=== PATIENT | female | born 1935 | race Caucasian/White ===

== ENCOUNTER 2016-10-11 18:05 | Emergency (ER) | payer MEDICARE, OTHER ==
[~2016-10-11] VITALS: Ht 157.5 cm; Wt 72.6 kg
[~2016-10-11 18:05] MED LIST: 70/30 INSULIN SC; ANTIVERT GENERI25 MG PO; COUMADIN3 M1 PO; HUMULIN 70 U/ML10 ML SC; HUMULIN SC; IMDUR 60MG. TAB60 MG PO; IMDUR120 MG PO; K-DUR 2020 MEQ PO; LASIX20 MG PO; LASIX40 MG PO; LEVOFLOXACIN 5500 MG PO; LISINOPRIL/HCTZ1 TA1 PO; LISINOPRIL2.5 MG PO; LORTAB 5/500 501 TAB PO; LOVASTATIN20 MG PO; METOPROLOL25 MG PO; METOPROLOL50 MG PO; MICRO-K 10 MEQ10 MEQ PO; MULTAQ400 MG PO; NIFEDIAC CC60 MG PO; NITROLINGU0.4 MG/ACT SL; NOVOLIN 70/30 710 ML SC; PRILOSEC OTC20 MG PO; SERAX 10MG CAPS10 MG PO; TESSALON PERLE100 M1 PO; WARFARIN SOD5 MG PO; WARFARIN SODIUM1 MG PO; WARFARIN4 MG PO; ZITHROMAX Z-PA250 M2 PO; ZOFRAN ODT8 MG PO; ZOFRAN4 MG PO
[2016-10-11 18:53] LABS: HEMOGLOBIN 13.8 g/dL (12.2-16.2); LYMPH # 0.8 K/mm3 (0.7-4.5); LYMPH % 11.9 % (10-50.0)
[2016-10-11 19:16] LABS: FREE THYROXIN INDEX 6.6 ug/dl (5.93-13.13)
--- NOTE | 2016-10-11 19:47 | Emergency Room Report ---
History of Present Illness Time Seen by 183 Presenting Problem in Triage Pt arrived:Wheelchair Presenting Problem:PT IS HAVING PRESSURE ON THE LEFT SIDE OF HER CHEST AND BREAST. 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 N Clinical Suspician of Infection? N Mental Status: 1 - Regular (Normal Baseline) Sepsis Risk:Low Sepsis Risk Have you (or family members/close friends) recently traveled outside the [place]? N If Yes, where/when: Have you had exposure to infectious disease within the past month? N TB? Other? Specify: Source patient, RN notes reviewed, family, RN/MD Exam Limitations no limitations Comment This is an 81-year-old lady arriving to the emergency room with RIGHT shoulder pain since early this morning, radiating into her RIGHT chest wall. Shortness of breath. She recently had 2 teeth pulled, approximately 5 days ago, and her anticoagulation with Coumadin was temporarily stopped. Patient has restarted her Coumadin 4mg daily just couple of days ago. Patient is pain is worse with movement of the RIGHT upper extremity. ALLERGIES Coded Allergies: Tetracyclines (10/12/15) cephalexin (From KEFLEX) (10/12/15) Home Medications Reported Medications Warfarin Sodium 4 MG PO DAILY Lovastatin 20 MG PO QHS OMEPRAZOLE MAGNESIUM (Prilosec OTC) 20 MG PO DAILY INSULIN NPH HUM/REG INSULIN HM (Novolin 70-30 100 Unit/Ml Vial) 25 UNITS SC DAILY IN AM INSULIN NPH HUM/REG INSULIN HM (Novolin 70-30 100 Unit/Ml Vial) 14 UNIT SC DAILY AT PM Furosemide (Lasix) 40 MG PO DAILY Metoprolol Tartrate (Metoprolol) 12.5 MG PO BID #30 TAB LISINOPRIL (Lisinopril) 2.5 MG PO DAILY Potassium Chloride (K-Dur) 20 MEQ PO DAILY #30 History Medical History General CAD? Yes Angina: Yes [place]: Yes Hypertension? Yes Hyperlipidemia? Yes CHF? Yes DVT? No PE? No COPD? Yes Asthma? No Anemia? No GERD? Yes Gastric ulcers? Yes GI Bleed? No Hernia? No Thyroid Problems? No Hypothyroidism? No CVA? No Seizures? No Diabetes? 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 Yes Renal Insuffiency? No End Stage Renal Disease? No UTI? Yes Stones? No BPH? No GB Disease: Yes Nephritic Syndrome? No Asplenia? No Hepatitis? No Sickle Cell Disease? No Arthritis? Yes Migraines? No Cataracts? Yes Glaucoma? Yes MRSA? No HIV? No TB? No Anxiety? Yes Depression? Yes Cancer? Yes Site: SKIN Immunization Hx DT/Tetanus Unknown Flu 2012-FSN Pneumonia Received In Past Surgical Hx Previous Surgery?Y Coronary Artery Bypass HYSTERECTOMY Cholecystectomy APPY D & C LASER ON ABIOLA EYES LEFT HAND SURGERY 01/17 RIGHT HAND SURGERY 2003 CATARACT REMOVEAL ABIOLA EYE L SHOULDER PACEMAKER INSERTION Family History Family Hx Diabetes Yes CAD No Hypertension Yes Hyperlipidemia Yes Cancer Yes TB No Social History Smoking Hx Smoker: Never Smoker Tobacco: No Packs/day N/A Alcohol Alcohol: No Review of Systems All Other Systems Reviewed and Negative Cardiovascular chest pain Musculoskeletal joint pain (Lesher the pain) Physical Exam Vital Signs Vital Signs Date Time Temp Pulse Resp B/P Pulse O2 O2 Flow FiO2 Ox Delivery Rate 10/11 2032 98.2 78 20 152/86 96 10/11 2030 98.2 78 20 152/86 96 10/11 195 98.2 76 20 160/77 96 10/11 191 97.8 70 18 148/67 95 10/11 181 98.0 72 18 160/85 95 General Appearance normal appearance, WD/WN, no apparent distress Respiratory Status Yes: trachea midline, chest symmetrical, non tender chest. No: respiratory distress. Lung Sounds bilateral: normal breath sounds, lungs clear. Cardiovascular normal exam, regular rate/rhythm, no peripheral edema, no gallop, no JVD, no murmur, no rub, normal peripheral pulses Gastrointestinal normal bowel sounds, normal exam, non tender, soft, no organomegaly Extremities normal inspection, RIGHT shoulder tender palpation, worse withno rotation and lateral abduction Neurologic alert, visual display manager II-XII nml as tested, normal exam, oriented x 3 Reflexes Reflexes normal Yes Mental status normal mood/affect Skin intact, normal color, warm/dry Medical Decision Making LABS/Meds/Orders Pt receiving controlled substance in ED? No Comment Upon evaluation patient appears medically stable, clinically improving. Advised patient results obtained, inconsistent with cardiac disease at this time. Advised patient to take [id number] Tylenol for pain control and follow up with her PCP per discharge instructions. Results/Orders Laboratory Tests 10/11/161840: B-Natriuretic Peptide 496 H, TSH 1.24, Free T4 Index 6.6, Thyroxine (T4) 7.4, T3 Uptake 36 10/11/161840: Sodium 139, Potassium 3.9, Chloride 103, Carbon Dioxide 27, BUN 28 H, Creatinine 1.2 H, Estimated Creat Clear 41 L, Estimated GFR (MDRD) 43 L, Glucose 118 H, Calcium 9.1, Total Bilirubin 3.5 H, AST 30, ALT 17, Alkaline Phosphatase 91, Creatine Kinase 88, CK and CKMB Interp 1.3, Troponin I 0.03, Total Protein 8.1, Albumin 3.8, Globulin 4.3 H, Albumin/Globulin Ratio 0.9 L, PT 17.2 H, INR 1.61 H, APTT 31.1, WBC 6.8, RBC 4.67, Hgb 13.8, Hct 40.9, MCV 87.5, RDW 18.8 H, Plt Count 152, MPV 10.0, Gran % 75.6, Gran # 5.1, Lymphocytes % 11.9, Monocytes % 10.5 H, Eosinophils % 1.1, Basophils % 0.9, Lymphocytes # 0.8, Monocytes # 0.7, Eosinophils # 0.1, Basophils # 0.1, PUBS MCHC 33.7, MCH 29.5 Current Medication Orders Sig/Benito Start time Last Medication Dose Route Stop Time Status Admin Enoxaparin Sodium 0 .STK-MED ONE 10/11 2017 DC SC Tramadol HCl 0 .STK-MED ONE 10/11 2016 DC PO Enoxaparin Sodium 80 MG ONCE ONE 10/11 2014 DC 10/11 SC 10/11 Tramadol HCl 1 CRISTAL ONCE ONE 10/11 2014 DC 10/11 PO 10/11 Sodium Chloride 10 ML PRN PRN 10/11 184 DCD IV 10/12 184 Orders Procedure Date/time Status 12 LEAD EKG-CHETAN (INITIAL) 10/11 1844 Active ELECTROCARDIOGRAM REQUEST 10/11 1844 Active IV SALINE LOCK 10/11 1844 Active OXYGEN PER NURSE 10/11 1844 Active SALES AND SERVICE ADVISOR 10/11 1844 Active TROPONIN I 10/11 1844 Complete THYROID PANEL 2 (WITH TSH) 10/11 1844 Complete PARTIAL THROMBOPLASTIN TIME 10/11 184 Complete PROTHROMBIN TIME 10/11 184 Complete CPK 10/11 184 Complete COMPLETE METABOLIC PANEL 10/11 184 Complete CKMB 10/11 184 Complete CBC WITH AUTO DIFF 10/11 1844 Complete BRAIN NATRIURETIC PEPTIDE 10/11 184 Complete CM/EKG CM/human service technician Rhythm Normal Sinus Rhythm Rate 85 Ectopy No Comments No acute ischemic changes EKG rate, NSR, rhythm, no evid. of ischemic chgs, no ectopy, normal QRS, normal [place], no EKG for comparison, non-spec. ST/Twave chgs, ST elevation, ST depression, LBBB, RBBB, ectopy, abnormal Q waves XRAY/CT/US XRAY/CT/US XRAY chest XR interpretation by reviewed by me Xray Results no infiltrates, normal heart size, normal lung inflation abiola Departure Departure Time of Disposition 2009 Disposition DC Home or Self Care(routine) Clinical Impression Primary Impression: Right shoulder pain Qualifiers: Chronicity: acute Qualified Code: M25.511 - Pain in right shoulder Condition STABLE Referrals ASHER GIBBS: 2 Days-Call Office Maciej Alcaraz MD (Family): Tomorrow-Call Office Patient Instructions DI for Shoulder Pain Additional Instructions Presented the medications prescribed as directed, follow-up with Dr. Alcaraz if no better tomorrow. Discharge Counseling Counseled pt/family regarding diagnosis, test results, medications/RX, home care, follow up needs Comment Presented the medications prescribed as directed, follow-up with Dr. Alcaraz if no better tomorrow. ED Critical Care Critical Care No at 1615
--- NOTE | 2016-10-11 19:47 | Emergency Room Report ---
History of Present Illness Time Seen by 183 Presenting Problem in Triage Pt arrived:Wheelchair Presenting Problem:PT IS HAVING PRESSURE ON THE LEFT SIDE OF HER CHEST AND BREAST. 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 N Clinical Suspician of Infection? N Mental Status: 1 - Regular (Normal Baseline) Sepsis Risk:Low Sepsis Risk Have you (or family members/close friends) recently traveled outside the [place]? N If Yes, where/when: Have you had exposure to infectious disease within the past month? N TB? Other? Specify: Source patient, RN notes reviewed, family, RN/MD Exam Limitations no limitations Comment This is an 81-year-old lady arriving to the emergency room with RIGHT shoulder pain since early this morning, radiating into her RIGHT chest wall. Shortness of breath. She recently had 2 teeth pulled, approximately 5 days ago, and her anticoagulation with Coumadin was temporarily stopped. Patient has restarted her Coumadin 4mg daily just couple of days ago. Patient is pain is worse with movement of the RIGHT upper extremity. ALLERGIES Coded Allergies: Tetracyclines (10/12/15) cephalexin (From KEFLEX) (10/12/15) Home Medications Reported Medications Warfarin Sodium 4 MG PO DAILY Lovastatin 20 MG PO QHS OMEPRAZOLE MAGNESIUM (Prilosec OTC) 20 MG PO DAILY INSULIN NPH HUM/REG INSULIN HM (Novolin 70-30 100 Unit/Ml Vial) 25 UNITS SC DAILY IN AM INSULIN NPH HUM/REG INSULIN HM (Novolin 70-30 100 Unit/Ml Vial) 14 UNIT SC DAILY AT PM Furosemide (Lasix) 40 MG PO DAILY Metoprolol Tartrate (Metoprolol) 12.5 MG PO BID #30 TAB LISINOPRIL (Lisinopril) 2.5 MG PO DAILY Potassium Chloride (K-Dur) 20 MEQ PO DAILY #30 History Medical History General CAD? Yes Angina: Yes [place]: Yes Hypertension? Yes Hyperlipidemia? Yes CHF? Yes DVT? No PE? No COPD? Yes Asthma? No Anemia? No GERD? Yes Gastric ulcers? Yes GI Bleed? No Hernia? No Thyroid Problems? No Hypothyroidism? No CVA? No Seizures? No Diabetes? 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 Yes Renal Insuffiency? No End Stage Renal Disease? No UTI? Yes Stones? No BPH? No GB Disease: Yes Nephritic Syndrome? No Asplenia? No Hepatitis? No Sickle Cell Disease? No Arthritis? Yes Migraines? No Cataracts? Yes Glaucoma? Yes MRSA? No HIV? No TB? No Anxiety? Yes Depression? Yes Cancer? Yes Site: SKIN Immunization Hx DT/Tetanus Unknown Flu 2012-FSN Pneumonia Received In Past Surgical Hx Previous Surgery?Y Coronary Artery Bypass HYSTERECTOMY Cholecystectomy APPY D & C LASER ON ABIOLA EYES LEFT HAND SURGERY 01/17 RIGHT HAND SURGERY 2003 CATARACT REMOVEAL ABIOLA EYE L SHOULDER PACEMAKER INSERTION Family History Family Hx Diabetes Yes CAD No Hypertension Yes Hyperlipidemia Yes Cancer Yes TB No Social History Smoking Hx Smoker: Never Smoker Tobacco: No Packs/day N/A Alcohol Alcohol: No Review of Systems All Other Systems Reviewed and Negative Cardiovascular chest pain Musculoskeletal joint pain (Lesher the pain) Physical Exam Vital Signs Vital Signs Date Time Temp Pulse Resp B/P Pulse O2 O2 Flow FiO2 Ox Delivery Rate 10/11 2032 98.2 78 20 152/86 96 10/11 2030 98.2 78 20 152/86 96 10/11 195 98.2 76 20 160/77 96 10/11 191 97.8 70 18 148/67 95 10/11 181 98.0 72 18 160/85 95 General Appearance normal appearance, WD/WN, no apparent distress Respiratory Status Yes: trachea midline, chest symmetrical, non tender chest. No: respiratory distress. Lung Sounds bilateral: normal breath sounds, lungs clear. Cardiovascular normal exam, regular rate/rhythm, no peripheral edema, no gallop, no JVD, no murmur, no rub, normal peripheral pulses Gastrointestinal normal bowel sounds, normal exam, non tender, soft, no organomegaly Extremities normal inspection, RIGHT shoulder tender palpation, worse withno rotation and lateral abduction Neurologic alert, medical administrative specialist II-XII nml as tested, normal exam, oriented x 3 Reflexes Reflexes normal Yes Mental status normal mood/affect Skin intact, normal color, warm/dry Medical Decision Making LABS/Meds/Orders Pt receiving controlled substance in ED? No Comment Upon evaluation patient appears medically stable, clinically improving. Advised patient results obtained, inconsistent with cardiac disease at this time. Advised patient to take [id number] Tylenol for pain control and follow up with her PCP per discharge instructions. Results/Orders Laboratory Tests 10/11/161840: B-Natriuretic Peptide 496 H, TSH 1.24, Free T4 Index 6.6, Thyroxine (T4) 7.4, T3 Uptake 36 10/11/161840: Sodium 139, Potassium 3.9, Chloride 103, Carbon Dioxide 27, BUN 28 H, Creatinine 1.2 H, Estimated Creat Clear 41 L, Estimated GFR (MDRD) 43 L, Glucose 118 H, Calcium 9.1, Total Bilirubin 3.5 H, AST 30, ALT 17, Alkaline Phosphatase 91, Creatine Kinase 88, CK and CKMB Interp 1.3, Troponin I 0.03, Total Protein 8.1, Albumin 3.8, Globulin 4.3 H, Albumin/Globulin Ratio 0.9 L, PT 17.2 H, INR 1.61 H, APTT 31.1, WBC 6.8, RBC 4.67, Hgb 13.8, Hct 40.9, MCV 87.5, RDW 18.8 H, Plt Count 152, MPV 10.0, Gran % 75.6, Gran # 5.1, Lymphocytes % 11.9, Monocytes % 10.5 H, Eosinophils % 1.1, Basophils % 0.9, Lymphocytes # 0.8, Monocytes # 0.7, Eosinophils # 0.1, Basophils # 0.1, PUBS MCHC 33.7, MCH 29.5 Current Medication Orders Sig/Benito Start time Last Medication Dose Route Stop Time Status Admin Enoxaparin Sodium 0 .STK-MED ONE 10/11 2017 DC SC Tramadol HCl 0 .STK-MED ONE 10/11 2016 DC PO Enoxaparin Sodium 80 MG ONCE ONE 10/11 2014 DC 10/11 SC 10/11 Tramadol HCl 1 CRISTAL ONCE ONE 10/11 2014 DC 10/11 PO 10/11 Sodium Chloride 10 ML PRN PRN 10/11 184 DCD IV 10/12 184 Orders Procedure Date/time Status 12 LEAD EKG-CHETAN (INITIAL) 10/11 1844 Active ELECTROCARDIOGRAM REQUEST 10/11 1844 Active IV SALINE LOCK 10/11 1844 Active OXYGEN PER NURSE 10/11 1844 Active DYED RAW STOCK BLOWER FEEDER 10/11 1844 Active TROPONIN I 10/11 1844 Complete THYROID PANEL 2 (WITH TSH) 10/11 1844 Complete PARTIAL THROMBOPLASTIN TIME 10/11 184 Complete PROTHROMBIN TIME 10/11 184 Complete CPK 10/11 184 Complete COMPLETE METABOLIC PANEL 10/11 184 Complete CKMB 10/11 184 Complete CBC WITH AUTO DIFF 10/11 1844 Complete BRAIN NATRIURETIC PEPTIDE 10/11 184 Complete CM/EKG 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 of ischemic chgs, no ectopy, normal QRS, normal [place], no EKG for comparison, non-spec. ST/Twave chgs, ST elevation, ST depression, LBBB, RBBB, ectopy, abnormal Q waves XRAY/CT/US XRAY/CT/US XRAY chest XR interpretation by reviewed by me Xray Results no infiltrates, normal heart size, normal lung inflation abiola Departure Departure Time of Disposition 2009 Disposition DC Home or Self Care(routine) Clinical Impression Primary Impression: Right shoulder pain Qualifiers: Chronicity: acute Qualified Code: M25.511 - Pain in right shoulder Condition STABLE Referrals ASHER GIBBS: 2 Days-Call Office Maciej Alcraaz MD (Family): Tomorrow-Call Office Patient Instructions DI for Shoulder Pain Additional Instructions Presented the medications prescribed as directed, follow-up with Dr. Alcaraz if no better tomorrow. Discharge Counseling Counseled pt/family regarding diagnosis, test results, medications/RX, home care, follow up needs Comment Presented the medications prescribed as directed, follow-up with Dr. Alcaraz if no better tomorrow. ED Critical Care Critical Care No at 161
[2016-10-11 20:33] VITALS: BP 152/86
--- NOTE | 2016-10-12 08:22 | RADIOLOGY REPORT PS360 ---
CHEST-PORTABLE HISTORY: Chest pain pain COMPARISON: 02/09/2016 FINDINGS: There is cardiomegaly without failure. There has been a prior median sternotomy. Cardiac pacemaker is present. No lobar consolidation or collapse. The right hilum is prominent but likely related to underlying pulmonary vessels with mild patient rotation. Upright PA and lateral chest may confirm. There is a left humeral prosthesis. IMPRESSION: 1. Status post CABG with cardiomegaly and pacemaker. 2. Prominent right hilum. Recommend upright PA and lateral chest for further evaluation
== END 2016-10-11 20:34 | disposition home or self-care (01) ==
LOC: ER 18:05
PROVIDERS: Emergency Medicine
DX: M25.511 Pain in right shoulder (principal); Z79.01 Long term (current) use of anticoagulants; I25.10 Atherosclerotic heart disease of native coronary artery without angina pectoris; I10 Essential (primary) hypertension; E11.9 Type 2 diabetes mellitus without complications; Z79.4 Long term (current) use of insulin; K21.9 Gastro-esophageal reflux disease without esophagitis; R06.02 Shortness of breath

== ENCOUNTER → 2017-06-19 | Outpatient (CLI) | payer MEDICARE, OTHER ==
[~2017-06-19] MED LIST changes: +BISOPROLOL 5MG T5 MG PO; +ENTRESTO 24 MG1 EACH PO; +PREDNISONE5 MG PO
[2017-06-19 14:55] LABS: URINE BILIRUBIN - DIPSTICK NEGATIVE (NEG); URINE BLOOD 2+ (NEG)
== END ==
LOC: LAB 13:18
PROVIDERS: Family Medicine
DX: R41.82 Altered mental status, unspecified (principal)

== ENCOUNTER 2017-08-23 16:15 | Inpatient (IN) | payer MEDICARE, OTHER ==
[~2017-08-23] VITALS: Ht 157.5 cm; Wt 76.8 kg
--- OUTSIDE RECORDS SUMMARY | 2017-08-23 16:18 | External Medical Summary Rpt | CCD ---
Author Author , SUNDAY Organization SUNDAY Address Unknown Phone [email or web address] Purpose Continuity of Care Document - 03-06-2017 through 2016 Problems Code Diagnosis DOS Provider Status E11.9 TYPE 2 DIABETES MELLITUS WITHOUT COMPLICATIO NS E86.0 DEHYDRATION H83.09 LABYRINTHIT IS, UNSPECIFIED EAR J20.9 ACUTE BRONCHITIS, UNSPECIFIED K29.80 DUODENITIS WITHOUT BLEEDING K52.9 NONINFECTIV E GASTROENTER ITIS AND COLITIS, UNSPECIFIED M25.511 PAIN IN RIGHT SHOULDER N28.9 DISORDER OF KIDNEY AND URETER, UNSPECIFIED R11.10 VOMITING, UNSPECIFIED S00.83XA CONTUSION OF OTHER PART OF HEAD, INITIAL ENCOUNTER W19.XXXA UNSPECIFIED FALL, INITIAL ENCOUNTER Z78.0 ASYMPTOMATI C MENOPAUSAL STATE Z95.0 PRESENCE OF CARDIAC PACEMAKER Results Labs Lab Lab Date Result Refere Interp Status Commen Order Detail nces retati t Range on Urinalysis dipstick W Reflex Microscopic panel in Urine (06-19-2017 11:30) Bacteri 4+ O complet a 017 ed [Presen 11:30 ce] in Urine sedimen t by Light microsc opy Erythro 5-10 0 complet cytes 017 ed [Presen 11:30 ce] in Urine sedimen t by Light microsc opy Epithel 10-20 0#/hp complet ial 017 f - ed cells.s 11:30 5#/hp quamous f [Presen ce] in Urine sedimen t by Microsc opy high power field Leukocy 3-5 O complet jose 017 wbc/hpf ed [#/volu 11:30 me] in Urine Urinalysis dipstick W Reflex Microscopic panel in Urine (06-19-2017 11:30) Appeara SL CLEAR complet nce of 017 CLOUDY ed Urine 11:30 Bilirub 09-10-2 NEGATIV NEG complet in 017 E ed [Presen 11:30 ce] in Urine by Test strip Erythro 2+ NEG Abnorma complet cytes 017 l ed [Presen 11:30 ce] in Urine Color DK YELLOW complet of 017 YELLOW ed Urine 11:30 Ketones NEGATIV NEG complet 017 E ed [Presen 11:30 ce] in Urine by Automat ed test strip Mucus NEGATIV NEG complet [Presen 017 E ed ce] in 11:30 Urine sedimen t by Light microsc opy Nitrite NEGATIV NEG complet 017 E ed [Presen 11:30 ce] in Urine by Test strip Urobili 1.0 NEG complet nogen 017 ed [Presen 11:30 ce] in Urine by Test strip
--- OUTSIDE RECORDS SUMMARY | 2017-08-23 16:18 | External Medical Summary Rpt | CCD ---
Author Author , SUNDAY Organization [employer]DAY Address Unknown Phone [email or web address] Purpose Continuity of Care Document - 03-06-2017 [...]
--- OUTSIDE RECORDS SUMMARY | 2017-08-23 16:19 | External Medical Summary Rpt | CCD ---
Author Author , MARYJANE Organization MARYJANE Address Unknown Phone [email or web address] Immunization Name Date Rout CVX Reac Dose Comm Prov Is Faci e tion ent ider Refu lity Give sed n Infl 09-3 135 999 Hist D203 No D203 uenz 0-20 oric 45 45 a, 16 al High Info rmat Dose ion - Sour ce Unsp ecif ied
--- OUTSIDE RECORDS SUMMARY | 2017-08-23 16:19 | External Medical Summary Rpt ---
Author Author [facility] Robertson, [employer] Organization [employer] Address Unknown Phone Unavailable Results Urinalysis dipstick W Reflex Microscopic panel in Urine Observa Value Referen Units Interpr Notes Date tion ce etation Range Appeara SL CLEAR No No No Sep 10 nce of CLOUDY informa informa informa 2017 Urine tion in tion in tion in 11:30 source source source AM data data data Bacteri 4+ O No No No Sep 10 a informa informa informa 2017 [Presen tion in tion in tion in 11:30 ce] in source source source AM Urine data data data sedimen t by Light microsc opy Bilirub NEGATIV NEG No No No Sep 10 in E informa informa informa 2017 [Presen tion in tion in tion in 11:30 ce] in source source source AM Urine data data data by Test strip Erythro 2+ NEG No Abnorma No Sep 10 cytes informa l informa 2016 [Presen tion in tion in 11:30 ce] in source source AM Urine data data Color DK YELLOW No No No Sep 10 of YELLOW informa informa informa 2017 Urine tion in tion in tion in 11:30 source source source AM data data data Glucose NEG No No No Sep 10 [Mass/vol informati informati informati 2017 ume] in on in on in on in 11:30 AM Urine by source source source Test data data data strip Ketones NEGATIV NEG mg/dL No No Sep 10 E informa informa 2017 [Presen tion in tion in 11:30 ce] in source source AM Urine data data by Automat ed test strip Mucus NEGATIV NEG No No No Sep 10 [Presen E informa informa informa 2017 ce] in tion in tion in tion in 11:30 Urine source source source AM sedimen data data data t by Light microsc opy Nitrite NEGATIV NEG No No No Sep 10 E informa informa informa 2017 [Presen tion in tion in tion in 11:30 ce] in source source source AM Urine data data data by Test strip pH of 5.0 - 8.5 No Normal No Sep 10 Urine informati informati 2017 on in on in 11:30 AM source source data data Protein NEG mg/dL High No Sep 10 [Mass/vol informati 2017 ume] in on in 11:30 AM Urine by source Automated data test strip Erythro 5-10 0 rbc/hpf No No Sep 10 cytes informa informa 2017 [Presen tion in tion in 11:30 ce] in source source AM Urine data data sedimen t by Light microsc opy Specific 1.005 - No Normal No Sep 10 gravity 1.030 informati informati 2017 of Urine on in on in 11:30 AM source source data data Epithel 10-20 0 - 5 #/hpf No No Sep 10 ial informa informa 2017 cells.s tion in tion in 11:30 quamous source source AM data data [Presen ce] in Urine sedimen t by Microsc opy high power field Urobili 1.0 NEG E.U./dL No No Sep 10 nogen informa informa 2017 [Presen tion in tion in 11:30 ce] in source source AM Urine data data by Test strip Leukocy [3 O wbc/hpf No No Sep 10 jose wbc/hpf informa informa 2017 [#/volu ; 5 tion in tion in 11:30 me] in wbc/hpf source source AM Urine ] data data Urinalysis dipstick W Reflex Microscopic panel in Urine Observa Value Referen Units Interpr Notes Date tion ce etation Range Appeara SL CLEAR No No No Sep 10 nce of CLOUDY informa informa informa 2017 Urine tion in tion in tion in 11:30 source source source AM data data data Bilirub NEGATIV NEG No No No Sep 10 in E informa informa informa 2017 [Presen tion in tion in tion in 11:30 ce] in source source source AM Urine data data data by Test strip Erythro 2+ NEG No Abnorma No Sep 10 cytes informa l informa 2017 [Presen tion in tion in 11:30 ce] in source source AM Urine data data Color DK YELLOW No No No Sep 10 of YELLOW informa informa informa 2017 Urine tion in tion in tion in 11:30 source source source AM data data data Glucose NEG No No No Sep 10 [Mass/vol informati informati informati 2017 ume] in on in on in on in 11:30 AM Urine by source source source Test data data data strip Ketones NEGATIV NEG mg/dL No No Sep 10 E informa informa 2017 [Presen tion in tion in 11:30 ce] in source source AM Urine data data by Automat ed test strip Mucus NEGATIV NEG No No No Sep 10 [Presen E informa informa informa 2016 ce] in tion in tion in tion in 11:30 Urine source source source AM sedimen data data data t by Light microsc opy Nitrite NEGATIV NEG No No No Sep 10 E informa informa informa 2016 [Presen tion in tion in tion in 11:30 ce] in source source source AM Urine data data data by Test strip pH of 5.0 - 8.5 No Normal No Sep 10 Urine informati informati 2017 on in on in 11:30 AM source source data data Protein NEG mg/dL High No Sep 10 [Mass/vol informati 2017 ume] in on in 11:30 AM Urine by source Automated data test strip Specific 1.005 - No Normal No Sep 10 gravity 1.030 informati informati 2017 of Urine on in on in 11:30 AM source source data data Urobili 1.0 NEG E.U./dL No No Sep 10 nogen informa informa 2017 [Presen tion in tion in 11:30 ce] in source source AM Urine data data by Test strip Urea nitrogen [Mass/volume] in Serum or Plasma Observa Value Referen Units Interpr Notes Date tion ce etation Range Urea 7 - 18 mg/dL High No Sep 7 nitrogen informati 2017 [Mass/vol on in 10:07 AM ume] in source Serum or data Plasma CREATININE Observa Value Referen Units Interpr Notes Date tion ce etation Range Creatinin 0.55 - mg/dL High No Sep 7 e 1.02 informati 2017 [Mass/vol on in 10:07 AM ume] in source Serum or data Plasma Estimated 59- ML/MIN Low REFERENCE Sep 7 RANGE: 2017 glomerula >60 10:07 AM r ML/MIN/1. filtratio 73 SQUARE n rate METERSIf (GF this patient is -A merican, then multiply theresult by 1.210. Ammonia [Mass/volume] in Unspecified specimen Observa Value Referen Units Interpr Notes Date ti ce etation Range Ammonia 19 - 54 umoL/L Normal No Jun 03 [Mass/vol informati 2016 1:40 ume] in on in PM Unspecifi source ed data specimen Glucose [Mass/volume] in Capillary blood by Glucometer Observa Value Referen Units Interpr Notes Date ti ce etation Range Glucose 70 - 110 mg/dl High No March 08 [Mass/vol informati 2016 ume] in on in 11:49 AM Capillary source blood by data Glucomete r Glucose [Mass/volume] in Capillary blood by Glucometer Observa Value Referen Units Interpr Notes Date ti ce etation Range Glucose 70 - 110 mg/dl High No March 08 [Mass/vol informati 2016 6:34 ume] in on in AM Capillary source blood by data Glucomete r INR in Blood by Coagulation assay Observa Value Referen Units Interpr Notes Date ti ce etation Range IS PATIENT ON ANTICOAGULANTS? Y LIST ANTICOAGULANTS: COUMADIN PTT RESULTS MUST BE CALLED IF PT ON HEPARIN!!! Y INR in 0.9 - 1.1 No High March 08 Blood by informati NOTIFICAT 2016 6:15 Coagulati on in ION AM on assay source RESULT data Vale lujanINDKATHERINE ION INR RANGETHER APY FOR DVT, PE, ATRIAL FIB; 2.0 - 3.0PROPHY LAXIS FOR VTETHERAP Y FOR MECHANICA L HEART 2.5 - 3.5VALVE; PREVENTIO N OF SYSTEMICE MBOLISM SECONDARY TO AMI Prothromb 9.4 - SECONDS High March 08 in time 11.8 NOTIFICAT 2017 6:15 (PT) in ION AM Platelet RESULT poor Vale plasma by ne Coagulati on assay Basic metabolic panel in Blood Observa Value Referen Units Interpr Notes Date tion ce etation Range Urea 7 - 18 mg/dL High No March 08 nitrogen informati 2016 6:15 [Mass/vol on in AM ume] in source Serum or data Plasma Calcium 8.5 - mg/dL Normal No March 08 [Mass/vol 10.1 informati 2016 6:15 ume] in on in AM Serum or source Plasma data Chloride 98 - 107 mmoL/L Normal No March 08 [Moles/vo informati 2016 6:15 lume] in on in AM Serum or source Plasma data Carbon 21.0 - mmoL/L Normal No March 08 dioxide, 32.0 informati 2016 6:15 total on in AM [Moles/vo source lume] in data Serum or Plasma Creatinin 0.55 - mg/dL High No March 08 e 1.02 informati 2016 6:15 [Mass/vol on in AM ume] in source Serum or data Plasma Creatinin 50 - 200 ML/MIN Low No March 08 e renal informati 2017 6:15 clearance on in AM source predicted data by Cockcroft -Gault formula Estimated 59- ML/MIN Low REFERENCE March 08 RANGE: 2017 6:15 glomerula >60 AM r ML/MIN/1. filtratio 73 SQUARE n rate METERSIf (GF this patient is -A merican, then multiply theresult by 1.210. Glucose 74 - 106 mg/dL High No March 08 [Mass/vol informati 2016 6:15 ume] in on in AM Serum or source Plasma data Potassium 3.5 - 5.1 mmoL/L Normal No March 08 informati 2016 6:15 [Moles/vo on in AM lume] in source Serum or data Plasma Sodium 136 - 145 mmoL/L Low No March 08 [Moles/vo informati 2016 6:15 lume] in on in AM Serum or source Plasma data Glucose [Mass/volume] in Capillary blood by Glucometer Observa Value Referen Units Interpr Notes Date tion ce etation Range Glucose 70 - 110 mg/dl High No March 07 [Mass/vol informati 2016 8:36 ume] in on in PM Capillary source blood by data Glucomete r Glucose [Mass/volume] in Capillary blood by Glucometer Observa Value Referen Units Interpr Notes Date tion ce etation Range Glucose 70 - 110 mg/dl High No March 07 [Mass/vol informati 2016 4:49 ume] in on in PM Capillary source blood by data Glucomete r Glucose [Mass/volume] in Capillary blood by Glucometer Observa Value Referen Units Interpr Notes Date tion ce etation Range Glucose 70 - 110 mg/dl High No March 07 [Mass/vol informati 2016 ume] in on in 11:46 AM Capillary source blood by data Glucomete r INR in Blood by Coagulation assay Observa Value Referen Units Interpr Notes Date tion ce etation Range IS PATIENT ON ANTICOAGULANTS? Y LIST ANTICOAGULANTS: COUMADIN PTT RESULTS MUST BE CALLED IF PT ON HEPARIN!!! Y INR in 0.9 - 1.1 No High March 07 Blood by informati NOTIFICAT 2017 7:10 Coagulati on in ION AM on assay source RESULT data Vale taiINDICAMickie ION INR RANGETHER APY FOR DVT, PE, ATRIAL FIB; 2.0 - 3.0PROPHY LAXIS FOR VTETHERAP Y FOR MECHANICA L HEART 2.5 - 3.5VALVE; PREVENTIO N OF SYSTEMICE MBOLISM SECONDARY TO AMI Prothromb 9.4 - SECONDS High March 07 in time 11.8 NOTIFICAT 2017 7:10 (PT) in ION AM Platelet RESULT poor Vale plasma by ne Coagulati on assay Basic metabolic panel in Blood Observa Value Referen Units Interpr Notes Date tion ce etation Range Urea 7 - 18 mg/dL High No March 07 nitrogen informati 2016 7:10 [Mass/vol on in AM ume] in source Serum or data Plasma Calcium 8.5 - mg/dL Normal No March 07 [Mass/vol 10.1 informati 2017 7:10 ume] in on in AM Serum or source Plasma data Chloride 98 - 107 mmoL/L Normal No March 07 [Moles/vo informati 2016 7:10 lume] in on in AM Serum or source Plasma data Carbon 21.0 - mmoL/L Normal No March 07 dioxide, 32.0 informati 2017 7:10 total on in AM [Moles/vo source lume] in data Serum or Plasma Creatinin 0.55 - mg/dL High No March 07 e 1.02 informati 2017 7:10 [Mass/vol on in AM ume] in source Serum or data Plasma Creatinin 50 - 200 ML/MIN Low No March 07 e renal informati 2016 7:10 clearance on in AM source predicted data by Cockcroft -Gault formula Estimated 59- ML/MIN Low REFERENCE March 07 RANGE: 2017 7:10 glomerula >60 AM r ML/MIN/1. filtratio 73 SQUARE n rate METERSIf (GF this patient is -A merican, then multiply theresult by 1.210. Glucose 74 - 106 mg/dL Normal No March 07 [Mass/vol informati 2016 7:10 ume] in on in AM Serum or source Plasma data Potassium 3.5 - 5.1 mmoL/L Normal No March 07 informati 2016 7:10 [Moles/vo on in AM lume] in source Serum or data Plasma Sodium 136 - 145 mmoL/L Normal No March 07 [Moles/vo informati 2016 7:10 lume] in on in AM Serum or source Plasma data Glucose [Mass/volume] in Capillary blood by Glucometer Observa Value Referen Units Interpr Notes Date tion ce etation Range Glucose 70 - 110 mg/dl No No March 07 [Mass/vol informati informati 2016 6:20 ume] in on in on in AM Capillary source source blood by data data Glucomete r Lactate [Moles/volume] in Blood Observa Value Referen Units Interpr Notes Date tion ce etation Range Lactate 0.4 - 2.0 mmol/L Normal No March 07 [Moles/vo informati 2016 lume] in on in 12:45 AM Blood source data Glucose [Mass/volume] in Capillary blood by Glucometer Observa Value Referen Units Interpr Notes Date tion ce etation Range Glucose 70 - 110 mg/dl High No March 06 [Mass/vol informati 2016 8:08 ume] in on in PM Capillary source blood by data Glucomete r UPPER RESPIRATORY PANEL,PCR Observa Value Referen Units Interpr Notes Date tion ce etation Range Adenovi NOT NOT No No No March 06 gene DNA DETECTE DETECTE informa informa informa 2017 D tion in tion in tion in 6:18 PM [Presen source source source ce] in data data data Unspeci fied specime n by Probe & target amplifi cation method Bordete NOT NOT No No No March 06 lla DETECTE DETECTE informa informa informa 2017 pertuss D tion in tion in tion in 6:18 PM is DNA source source source [Presen data data data ce] in Unspeci fied specime n by Probe & target amplifi cation method Chlamyd NOT NOT No No No March 06 ophila DETECTE DETECTE informa informa informa 2017 pneumon D tion in tion in tion in 6:18 PM iae DNA source source source data data data [Presen ce] in Unspeci fied specime n by Probe & target amplifi cation method SARS NOT NOT No No No March 06 coronav DETECTE DETECTE informa informa informa 2017 irus D tion in tion in tion in 6:18 PM RNA source source source [Presen data data data ce] in Unspeci fied specime n by Probe & target amplifi cation method Human NOT NOT No No No March 06 coronav DETECTE DETECTE informa informa informa 2017 irus D tion in tion in tion in 6:18 PM HKU1 source source source RNA data data data detecti on by SARS NOT NOT No No No March 06 coronav DETECTE DETECTE informa informa informa 2017 irus D tion in tion in tion in 6:18 PM RNA source source source [Presen data data data ce] in Unspeci fied specime n by Probe & target amplifi cation method SARS NOT NOT No No No March 06 coronav DETECTE DETECTE informa informa informa 2017 irus D tion in tion in tion in 6:18 PM RNA source source source [Presen data data data ce] in Unspeci fied specime n by Probe & target amplifi cation method Influen NOT NOT No No No March 06 za DETECTE DETECTE informa informa informa 2017 virus A D tion in tion in tion in 6:18 PM H3 RNA source source source data data data [Presen ce] in Unspeci fied specime n by Probe & target amplifi cation method Influen NOT NOT No No No March 06 za DETECTE DETECTE informa informa informa 2017 virus A D tion in tion in tion in 6:18 PM H1 RNA source source source data data data [Presen ce] in Isolate by Probe & target amplifi cation method Influen NOT NOT No No No March 06 za DETECTE DETECTE informa informa informa 2017 virus A D tion in tion in tion in 6:18 PM H1 RNA source source source data data data [Presen ce] in Unspeci fied specime n by Probe & target amplifi cation method Influen NOT NOT No No No March 06 za DETECTE DETECTE informa informa informa 2017 virus B D tion in tion in tion in 6:18 PM RNA source source source [Presen data data data ce] in Unspeci fied specime n by Probe & target amplifi cation method Influen NOT NOT No No No March 06 za DETECTE DETECTE informa informa informa 2017 virus A D tion in tion in tion in 6:18 PM RNA source source source [Presen data data data ce] in Unspeci fied specime n by Probe & target amplifi cation method Human NOT NOT No No No March 06 metapne DETECTE DETECTE informa informa informa 2017 umoviru D tion in tion in tion in 6:18 PM s Ag source source source [Presen data data data ce] in Unspeci fied specime n Mycopla NOT NOT No No No March 06 sma DETECTE DETECTE informa informa informa 2017 pneumon D tion in tion in tion in 6:18 PM iae DNA source source source data data data [Presen ce] in Unspeci fied specime n by Probe & target amplifi cation method Parainf NOT NOT No No No March 06 luenza DETECTE DETECTE informa informa informa 2016 virus 1 D tion in tion in tion in 6:18 PM RNA source source source [Presen data data data ce] in Unspeci fied specime n by Probe & target amplifi cation method Parainf NOT NOT No No No March 06 luenza DETECTE DETECTE informa informa informa 2017 virus 2 D tion in tion in tion in 6:18 PM RNA source source source [Presen data data data ce] in Unspeci fied specime n by Probe & target amplifi cation method Parainf NOT NOT No No No March 06 luenza DETECTE DETECTE informa informa informa 2017 virus 3 D tion in tion in tion in 6:18 PM RNA source source source [Presen data data data ce] in Unspeci fied specime n by Probe & target amplifi cation method Parainf NOT NOT No No No March 06 luenza DETECTE DETECTE informa informa informa 2017 virus 4 D tion in tion in tion in 6:18 PM RNA source source source [Presen data data data ce] in Isolate by Probe & target amplifi cation method Rhinovi NOT NOT No No No March 06 gene+Ent DETECTE DETECTE informa informa informa 2016 eroviru D tion in tion in tion in 6:18 PM s RNA source source source [Presen data data data ce] in Unspeci fied specime n by Probe & target amplifi cation method Respira NOT NOT No No No March 06 tory DETECTE DETECTE informa informa informa 2016 syncyti D tion in tion in tion in 6:18 PM al source source source virus data data data RNA [Presen ce] in Unspeci fied specime n by Probe & target amplifi cation method Natriutietic peptide B [Mass/volume] in Serum or Plasma Observa Value Referen Units Interpr Notes Date tion ce etation Range Natriutie 0 - 100 pg/mL High No March 06 tic informati 2016 4:20 peptide B on in PM source [Mass/vol data ume] in Serum or Plasma Comprehensive metabolic 2000 panel in Serum or Plasma Observa Value Referen Units Interpr Notes Date tion ce etation Range Albumin/G 1.1 - 1.8 No Low No March 06 lobulin informati informati 2016 4:20 [Mass on in on in PM ratio] in source source Serum or data data Plasma Albumin 3.4 - 5.0 gm/dL Normal No March 06 [Mass/vol informati 2016 4:20 ume] in on in PM Serum or source Plasma data Alkaline 46 - 116 U/L Normal No March 06 phosphata informati 2016 4:20 se on in PM [Enzymati source c data activity/ volume] in Serum or Plasma Bilirubin 0.2 - 1.0 mg/dL High No March 06 .total informati 2016 4:20 [Mass/vol on in PM ume] in source Serum or data Plasma Urea 7 - 18 mg/dL High No March 06 nitrogen informati 2016 4:20 [Mass/vol on in PM ume] in source Serum or data Plasma Calcium 8.5 - mg/dL Normal No March 06 [Mass/vol 10.1 informati 2016 4:20 ume] in on in PM Serum or source Plasma data Chloride 98 - 107 mmoL/L Normal No March 06 [Moles/vo informati 2016 4:20 lume] in on in PM Serum or source Plasma data Carbon 21.0 - mmoL/L Normal March 06 dioxide, 32.0 informati 2016 4:20 total on in PM [Moles/vo source lume] in data Serum or Plasma Creatinin 0.55 - mg/dL High No March 06 e 1.02 informati 2016 4:20 [Mass/vol on in PM ume] in source Serum or data Plasma Creatinin 50 - 200 ML/MIN Low No March 06 e renal informati 2016 4:20 clearance on in PM source predicted data by Cockcroft -Gault formula Estimated 59- ML/MIN Low REFERENCE March 06 RANGE: 2016 4:20 glomerula >60 PM r ML/MIN/1. filtratio 73 SQUARE n rate METERSIf (GF this patient is -A merican, then multiply theresult by 1.210. Globulin 1.3 - 3.2 gm/dL High No March 06 [Mass/vol informati 2016 4:20 ume] in on in PM Serum source data Glucose 74 - 106 mg/dL High March 06 [Mass/vol informati 2016 4:20 ume] in on in PM Serum or source Plasma data Potassium 3.5 - 5.1 mmoL/L Normal March 062016 4:20 [Moles/vo on in PM lume] in source Serum or data Plasma Sodium 136 - 145 mmoL/L Normal No March 06 [Moles/vo informati 2016 4:20 lume] in on in PM Serum or source Plasma data Aspartate 15 - 37 U/L Normal March 06 inform2016 4:20 aminotran on in PM sferase source [Enzymati data c activity/ volume] in Serum or Plasma Alanine 12 - 78 U/L Normal No March 06 aminotran informati 2016 4:20 sferase on in PM [Enzymati source c data activity/ volume] in Serum or Plasma Protein 6.4 - 8.2 gm/dL High No March 06 [Mass/vol informati 2016 4:20 ume] in on in PM Serum or source Plasma data CBC W Auto Differential panel in Blood Observa Value Referen Units Interpr Notes Date tion ce etation Range Basophils 0 - 0.2 K/MM3 Normal No March 06 informati 2016 4:20 [#/volume on in PM ] in source Blood by data Automated count Basophils 0.1 - 2.0 % Normal No March 06 / informati 2016 4:20 leukocyte on in PM s in source Blood by data Automated count Eosinophi 0.0 - 0.4 K/mm3 Normal No March 06 ls informati 2016 4:20 [#/volume on in PM ] in source Blood by data Automated count Eosinophi 0.1 - % Normal No March 06 ls/100 12.0 informati 2016 4:20 leukocyte on in PM s in source Blood by data Automated count Granulocy 1.8 - 7.8 K/mm3 Normal No March 06 jose informati 2016 4:20 [#/volume on in PM ] in source Blood by data Automated count Granulocy 37.0 - % Normal No March 06 jose/100 80.0 informati 2016 4:20 leukocyte on in PM s in source Blood by data Automated count Hematocri 37.0 - % Normal No March 06 t [Volume 47.0 informati 2016 4:20 on in PM Fraction] source of Blood data Hemoglobi 12.2 - g/dL Normal March 06 n 16.2 informati 2016 4:20 [Mass/vol on in PM ume] in source Blood data Lymphocyt 0.7 - 4.5 K/mm3 Normal No March 06 es informati 2016 4:20 [#/volume on in PM ] in source Unspecifi data ed specimen by Automated count Lymphocyt 10 - 50.0 % Normal No March 06 es informati 2016 4:20 [#/volume on in PM ] in source Unspecifi data ed specimen by Automated count Erythrocy 27 - 31.2 pg Normal No March 06 te mean informati 2016 4:20 corpuscul on in PM ar source hemoglobi data n [Entitic mass] Erythrocy 31.8 - g/dl Normal No March 06 te mean 35.4 informati 2016 4:20 corpuscul on in PM ar source hemoglobi data n concentra tion [Mass/vol ume] by Automated count Erythrocy 82.2 - fl Normal March 06 te mean 97.8 informati 2016 4:20 corpuscul on in PM ar volume source [Entitic data volume] by Automated count Monocytes 0.1 - 1.0 K/mm3 Normal No March 062016 4:20 [#/volume on in PM ] in source Blood by data Automated count Monocytes 1.7 - 9.3 % Normal No March 06 /100 informati 2016 4:20 leukocyte on in PM s in source Blood by data Automated count Platelet 7.4 - fl Low No March 06 mean 10.4 informati 2016 4:20 volume on in PM [Entitic source volume] data in Blood by Automated count Platelets 142 - 424 K/mm3 Normal March 06 informati 2016 4:20 [#/volume on in PM ] in source Blood data Erythrocy 4.2 - 5.4 M/mm3 Normal No March 06 jose informati 2016 4:20 [#/volume on in PM ] in source Amniotic data fluid Erythrocy 11.5 - % High No March 06 te 17.5 informati 2016 4:20 distribut on in PM ion width source [Entitic data volume] by Automated count Leukocyte 4.8 - K/MM3 Low No March 06 s 10.8 informati 2016 4:20 [#/volume on in PM ] in source Blood data INR in Blood by Coagulation assay Observa Value Referen Units Interpr Notes Date tion ce etation Range IS PATIENT ON ANTICOAGULANTS? Y LIST ANTICOAGULANTS: COUMADIN PTT RESULTS MUST BE CALLED IF PT ON HEPARIN!!! Y INR in 0.9 - 1.1 No High March 06 Blood by informati NOTIFICAT 2016 4:20 Coagulati on in ION PM on assay source RESULT data INDIC ATION INR RANGETHER APY FOR DVT, PE, ATRIAL FIB; 2.0 - 3.0PROPHY LAXIS FOR VTETHERAP Y FOR MECHANICA L HEART 2.5 - 3.5VALVE; PREVENTIO N OF SYSTEMICE MBOLISM SECONDARY TO AMI Prothromb 9.4 - SECONDS High No March 06 in time 11.8 informati 2016 4:20 (PT) in on in PM Platelet source poor data plasma by Coagulati on assay
--- OUTSIDE RECORDS SUMMARY | 2017-08-23 16:19 | External Medical Summary Rpt | CCD ---
Author Author , MARYJANE Organization MARYJANE Address Unknown Phone [email or web address] Immunization Name Date Rout CVX Reac Dose Comm Prov Is Faci e tion ent ider Refu lity Give sed n Infl 09-3 135 999 Hist D203 No D203 uenz 0-20 oric 45 45 a, 16 al High Info rmat Dose ion - Sour ce Unsp ecif ied
[2017-08-23 17:30] VITALS: BP 103/45
[2017-08-23 17:31] LABS: LYMPH # 0.6 K/mm3 (0.7-4.5); LYMPH % 8.7 % (10-50.0)
[2017-08-23 17:42] LABS: BUN 58 mg/dL (7-18)
[2017-08-23 17:44] VITALS: BP 103/45
[2017-08-23 17:44] LABS: HEMOGLOBIN 10.7 g/dL (12.2-16.2)
[2017-08-23 17:46] LABS: GFR (ESTIMATED) 13 ML/MIN (59-)
[2017-08-23] MEDS ORDERED: ATORVASTATIN PO (18:11)
[2017-08-23] MEDS ORDERED: BISOPROLOL 5MG T5 MG PO (18:12)
[2017-08-23] MEDS ORDERED: DONEPEZIL 10MG10 MG PO (18:14)
[2017-08-23] MEDS ORDERED: COUMADIN 2MG TAB2 MG PO (18:14)
[2017-08-23] MEDS ORDERED: IMODIUM A-D2 M3 PO (18:15)
[2017-08-23] MEDS ORDERED: IPRATROPIUM BROM3 M2 IH (18:17)
[2017-08-23] MEDS ORDERED: IPRATROPIUM BROM3 M1 IH (18:18)
[2017-08-23] MEDS ORDERED: LASIX 80MG. TAB80 MG PO (18:19)
[2017-08-23] MEDS ORDERED: LOSARTAN POTASS50 MG PO (18:20)
[2017-08-23] MEDS ORDERED: LEADER MELATONIN5 MG PO (18:21)
[2017-08-23] MEDS ORDERED: NOVOLOG FLEX100 U/ML SC (18:23)
[2017-08-23] MEDS ORDERED: PANTOPRAZOLE SO40 MG PO (18:24)
[2017-08-23] MEDS ORDERED: SANTYL250 U/GM EX (18:26)
[2017-08-23] MEDS ORDERED: TUSSIN DM CLEA120 ML PO (18:27)
[2017-08-23] MEDS ORDERED: VISTARIL25 MG PO (18:27)
[2017-08-23] MEDS ORDERED: OMNICEF 300 MG300 MG PO (18:28)
--- NOTE | 2017-08-23 18:43 | HISTORY AND PHYSICAL REPORT ---
Demographics: Admit date: 08/23/17 Chief complaint: right leg pain PRIMARY DIAGNOSIS: CELLULITIS Allergies: Coded Allergies: Tetracyclines (10/12/15) cephalexin (From KEFLEX) (10/12/15) History of present illness: History of present illness: 82 year old female with diabetes and ischemic cardiomyopathy with EF of 35% has been treated for a right leg cellulitis stemming from a wound on the lower right leg. Wound was the result of skin tears from fragile skin and edema. Patient had been treated witha course of Omnicef and after completing treatment leg remained erythematous with new onset of pain in the leg and foot. Patient has been admitted for IV antibiotics and pain control. Past medical history: Family HX Family Hx Insignificant No Diabetes Yes CAD No Hypertension Yes Hyperlipidemia Yes Cancer Yes TB No Immunization HX DT/Tetanus Unknown Flu 2016-18FSN Pneumonia Received In Past TB Test in last year No General CAD? Yes Angina: Yes ID: Yes Hypertension? Yes Hyperlipidemia? Yes CHF? Yes DVT? No PE? No COPD? Yes Asthma? No Anemia? No GERD? Yes Gastric ulcers? Yes GI Bleed? No Hernia? No Thyroid Problems? No Hypothyroidism? No CVA? No Seizures? No Diabetes? 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 Yes Renal Insuffiency? No UTI? Yes Stones? No BPH? No GB Disease: Yes Nephritic Syndrome? No Asplenia? No Hepatitis? No Sickle Cell Disease? No Arthritis? Yes Migraines? No Cataracts? Yes Glaucoma? Yes MRSA? No HIV? No TB? No Anxiety? Yes Depression? Yes Cancer? Yes Site: SKIN Past Surgical HX Previous Surgery?Y Coronary Artery Bypass HYSTERECTOMY Cholecystectomy APPY D & C LASER ON ABIOLA EYES LEFT HAND SURGERY 01/17 RIGHT HAND SURGERY 2003 CATARACT REMOVEAL ABI[place]A EYE L SHOULDER PACEMAKER INSERTION Current home meds: Reported Medications [ATORVASTATIN] 10 MG PO QHS BISOPROLOL FUMARATE (Bisoprolol 5MG) 2.5 MG PO DAILY WARFARIN SOD (Coumadin) 2 MG PO DAILY DONEPEZIL HCL (Donepezil 10MG Tablet) 5 MG PO QHS Loperamide HCl (Imodium A-D) 2 MG PO Q6HP PRN CONSTIPATION IPRATROPIUM/ALBUTEROL SULFATE (Iprat-Albut 0.5-3(2.5) MG/3 Ml) 3 ML IH TID ALBUTEROL-IPRATROPIUM (Iprat-Albut 0.5-3(2.5) MG/3 Ml) 3 ML IH TIDP PRN BREATHING Furosemide (Lasix 80MG) 80 MG PO BIDL Losartan Potassium (Losartan 50MG) 25 MG PO DAILY Melatonin 5 MG PO QHS Insulin Aspart, Recombinant (Novolog Flexpen) 2 UNITS SC ACHS Pantoprazole Sodium (Pantoprazole 40MG) 40 MG PO DAILY COLLAGENASE CLOSTRIDIUM HIST. (Santyl) 15 GM EX DAILY GUAIFENESIN/DEXTROMETHORPHAN (Tussin Dm Liquid) 480 ML PO Q6HP PRN COUGH Hydroxyzine Pamoate (Vistaril) 25 MG PO Q6HP PRN ANXIETY Social Hx: Smoking HX Packs/day N/A Are you/the child exposed to second-hand smoke: No Alcohol Alcohol: No Hx of Drug Use Drug Use? No Patien't marital status is Review of systems: Constitutional chills, malaise, weakness. No: diaphoresis, fever. Respiratory cough. No: shortness of breath. Cardiovascular no symptoms reported Gastrointestinal/Abdominal poor appetite Genitourinary no symptoms reported. Musculoskeletal no symptoms reported. Neurological Yes: no symptoms reported. Exam: Lab data for last 24 hours: Laboratory Tests 08/23/17 1720: Sodium 132 L, Potassium 4.8, Chloride 98, Carbon Dioxide 26, BUN 58 H, Creatinine 3.4 H, Estimated GFR (MDRD) 13 *L, Glucose 209 H, Calcium 8.3 L, Total Bilirubin 3.0 H, AST 16, ALT 9 L, Alkaline Phosphatase 83, B-Natriuretic Peptide 549 H, Total Protein 7.7, Albumin 2.6 L, Globulin 5.1 H, Albumin/ Globulin Ratio 0.5 L, PT 24.3 H, INR 2.23 H, WBC 6.5, RBC 4.22, Hgb 10.7 L, Hct 34.2 L, MCV 81.2 L, RDW 17.9 H, Plt Count 136 L, MPV 9.5, Gran % 77.3, Gran # 5.0, Lymphocytes % 8.7 L, Monocytes % 12.8 H, Eosinophils % 1.0, Basophils % 0.3, Lymphocytes # 0.6 L, Monocytes # 0.8, Eosinophils # 0.1, Basophils # 0.0, PUBS MCHC 31.1 L, MCH 25.2 L Admission vital signs: 1ST Vital Signs Result Date Time Pulse Ox 97 08/23 1730 O2 Delivery ROOM AIR 08/23 1730 B/P 103/45 08/23 1730 Temp 98.1 08/23 1730 Pulse 85 08/23 1730 Resp 18 08/23 1730 Exam General appearance: mild distress (appears uncomfortable) Eyes: scleral icterus ENT: mucous membranes moist Cardiovascular: regular rate & rhythm Respiratory: distant but clear ABD: soft, no tenderness Extremities: edema of bilateral thighs. Right lower leg with two open wounds and surrounding erythema with areas of deeper reddish/purple skin discoloration. Right lower leg and ankle are tender to the touch Neuro: oriented to person and place. Hearing loss makes communication difficult Plan: Problem List 1. Cellulitis of leg, right 2. Acivf-mg-nxqwppc kidney injury 3. At high risk for falls 4. Pacemaker 5. Diabetes mellitus 6. Ischemic cardiomyopathy Plan: 1. IV Unasyn and Clindamycin for celluliits 2. Gentle IV fluid hydration at 1843
[2017-08-23 20:08] VITALS: BP 105/46
[2017-08-23] MEDS ORDERED: LOPERAMIDE2 MG PO (23:00)
--- NOTE | 2017-08-23 23:11 | PHARMACY CLINIC NOTE ---
Patient Demographics Patient Demographics Admission date: 08/23/17 Date: 08/23/17 Time: 2309 Allergies Coded Allergies: Tetracyclines (10/12/15) cephalexin (From KEFLEX) (10/12/15) HEIGHT- FT: 5 IN: 2.00 K.707 VTE General Information Labs: Laboratory Tests 08/23 1720 Coagulation PT (9.4 - 11.8 SECONDS) 24.3 H INR (0.9 - 1.1) 2.23 H Hematology Hgb (12.2 - 16.2 g/dL) 10.7 L Hct (37.0 - 47.0 %) 34.2 L Plt Count (142 - 424 K/mm3) 136 L Disclaimer The following section includes nursing documentation that has been pulled in for pharmacy review. Patient's VTE score: 4 Patient's VTE Risk: LOW RISK Clinical trial participant? No VTE prophylaxis NQF [id number] VTE prophylaxis ordered? Yes Type of prophylaxis/treatment: JULI at 2310
--- NOTE | 2017-08-23 23:11 | PHARMACY CLINIC NOTE ---
Patient Demographics Patient Demographics Admission date: 08/23/17 Date: 08/23/17 Time: 2309 Allergies Coded Allergies: Tetracyclines (10/12/15) cephalexin (From KEFLEX) (10/12/15) HEIGHT- FT: 5 IN: 2.00 K.707 VTE General Information Labs: Laboratory Tests 08/23 1720 Coagulation PT (9.4 - 11.8 SECONDS) 24.3 H INR (0.9 - 1.1) 2.23 H Hematology Hgb (12.2 - 16.2 g/dL) 10.7 L Hct (37.0 - 47.0 %) 34.2 L Plt Count (142 - 424 K/mm3) 136 L Disclaimer The following section includes nursing documentation that has been pulled in for pharmacy review. Patient's VTE score: 4 Patient's VTE Risk: LOW RISK Clinical trial participant? No VTE prophylaxis NQF [id number] VTE prophylaxis ordered? Yes Type of prophylaxis/treatment: JULI at 2310
[2017-08-23] MEDS ORDERED: ATORVASTATIN CA10 MG PO (23:18)
[2017-08-24] VITALS (7 sets, daily range): BP systolic 95–112; BP diastolic 48–69
--- NOTE | 2017-08-24 07:27 | CARDIOVASCULAR REPORT ---
"Venous Exam Indications: 729.5 Pain in limb. IMPRESSIONS 1. No evidence of superficial vein thrombosis involving the right lower extremity 2. Deep vein thrombosis involving the right posterior tib History: Right lower extremity pain. Redness of the right lower extremity. Right lower extremity venous duplex evaluation. Doppler flow study including spectral analysis, color and vivas scale imaging. Location: Bedside. Patient status: Inpatient. Tables: Venous flow and imaging: + + + + + |Location |Overall |Flow properties |Comments | + + + + + |Right common femoral|Patent |Normal phasicity; | | | | |spontaneous; normal| | | | |augmentation; | | | | |compressible | | + + + + + |Right saphenofemoral|Patent |Compressible | | |junction | | | | + + + + + |Right profunda |Patent |Compressible | | |femoral | | | | + + + + + |Right femoral |Patent |Normal phasicity; | | | | |spontaneous; normal| | | | |augmentation; | | | | |compressible | | + + + + + |Right greater |Patent |Normal phasicity; | | |saphenous | |spontaneous; normal| | | | |augmentation; | | | | |compressible | | + + + + + |Right popliteal |Patent |Normal phasicity; | | | | |spontaneous; normal| | | | |augmentation; | | | | |compressible | | + + + + + |Right posterior |Partially |Partially | | |tibial |occluded |compressible | | + + + + + |Right peroneal |Patent |Compressible |Unable to | | | | |visualize | + + + + + |Right gastrocnemius |Patent |Compressible |Unable to | | | | |visualize | + + + + + |Right soleal |Patent |Compressible |Unable to | | | | |visualize | + + + + + (Report amended ) Electronically signed by: Best Mondragon [id number]"
--- NOTE | 2017-08-24 08:18 | ACUTE CARE PROGRESS NOTE (QUA) ---
Progress Notes Subjective Date 08/24/17 Time 0815 Note Patient complains of pain in the RIGHT leg. She denies shortness of breath. She is comfortable in bed. Light palpation of either leg causes the patient to scream out in pain. Patient has dependent edema from the posterior thorax down to the thighs. Lungs are clear. Heart has a regular rate and rhythm. RIGHT leg has erythema from the mid lynch to the ankle with heat radiating from the extremity. Extremity is tender to touch. Venous Doppler has revealed a posterior tibial DVT Patient's INR was therapeutic on admission. Await INR this morning. Continue Coumadin. Continue IV antibiotics. Patient has underlying dementia and I think this is also contributing to her perception of pain. Objective Findings Last VS-Temp:98.3 B/P:112/69 Pulse:69 Resp:20 SaO2:100 ROOM AIR Last weight lbs:171 oz:5 K.707 Method:Bed Scales Laboratory Tests 08/24/17 0745: Sodium 134 L, Potassium 4.4, Chloride 100, Carbon Dioxide 25, BUN 55 H, Creatinine 3.1 H, Estimated Creat Clear 17 L, Estimated GFR (MDRD) 14 *L, Glucose 133 H, Calcium 8.3 L, PT 26.7 H, INR 2.45 H 08/23/17 2105: POC Glucose 225 H 08/23/17 1756: POC Glucose 195 H 08/23/17 1720: Sodium 132 L, Potassium 4.8, Chloride 98, Carbon Dioxide 26, BUN 58 H, Creatinine 3.4 H, Estimated GFR (MDRD) 13 *L, Glucose 209 H, Calcium 8.3 L, Total Bilirubin 3.0 H, AST 16, ALT 9 L, Alkaline Phosphatase 83, B-Natriuretic Peptide 549 H, Total Protein 7.7, Albumin 2.6 L, Globulin 5.1 H, Albumin/ Globulin Ratio 0.5 L, PT 24.3 H, INR 2.23 H, WBC 6.5, RBC 4.22, Hgb 10.7 L, Hct 34.2 L, MCV 81.2 L, RDW 17.9 H, Plt Count 136 L, MPV 9.5, Gran % 77.3, Gran # 5.0, Lymphocytes % 8.7 L, Monocytes % 12.8 H, Eosinophils % 1.0, Basophils % 0.3, Lymphocytes # 0.6 L, Monocytes # 0.8, Eosinophils # 0.1, Basophils # 0.0, PUBS MCHC 31.1 L, MCH 25.2 L Assessment/Plan Problem List 1. Cellulitis of leg, right 2. Bobkj-hc-tkoeqyi kidney injury 3. At high risk for falls 4. Pacemaker 5. Diabetes mellitus 6. Ischemic cardiomyopathy 7. Deep vein thrombosis (DVT) of right lower extremity Patient condition Stable Plan: continue current care This inpt stay is expected to cross 2 MNs from start of care Yes at 0818
[2017-08-25] VITALS (8 sets, daily range): BP systolic 78–100; BP diastolic 32–60
--- NOTE | 2017-08-25 07:16 | ACUTE CARE PROGRESS NOTE (QUA) ---
Progress Notes Subjective Date 08/25/17 Time 0714 Note Patient complains of RIGHT leg pain. She is resting comfortably. She continues to have warm erythema of the RIGHT lower leg which is tender to the touch from the proximal tibia down to the foot. She has 2 small open wounds. Posteriorly in the entire leg and extending up to the back she has dependent edema Continue antibiotics, INR daily. Have patient out of bed to chair today Objective Findings Last VS-Temp:97.6 B/P:100/40 Pulse:77 Resp:18 SaO2:92 ROOM AIR Last weight lbs:169 oz:5 K.799 Method:Bed Scales Laboratory Tests 08/25/17 0555: POC Glucose 136 H 08/24/17 2016: POC Glucose 172 H 08/24/17 1718: POC Glucose 166 H 08/24/17 1213: POC Glucose 176 H 08/24/17 0745: Sodium 134 L, Potassium 4.4, Chloride 100, Carbon Dioxide 25, BUN 55 H, Creatinine 3.1 H, Estimated Creat Clear 17 L, Estimated GFR (MDRD) 14 *L, Glucose 133 H, Calcium 8.3 L, PT 26.7 H, INR 2.45 H Assessment/Plan Problem List 1. Cellulitis of leg, right 2. Hywxq-cv-jiisohz kidney injury 3. At high risk for falls 4. Pacemaker 5. Diabetes mellitus 6. Ischemic cardiomyopathy 7. Deep vein thrombosis (DVT) of right lower extremity Patient condition Stable Plan: continue current care This inpt stay is expected to cross 2 MNs from start of care Yes at 0716
--- NOTE | 2017-08-25 08:33 | CARDIOVASCULAR REPORT ---
"Arterial Exam Indications: 729.5 Pain in limb. IMPRESSIONS 1. Normal study. 2. No evidence of arterial insufficiency at rest involving the right lower extremity History: Right lower extremity pain. Risk factors: Hypertension. Patient has a DVT in right posterior tibial vein. Patient was very guarded. She was unable to move her right leg in anyway. Scanning was limited due to patient condition. Right lower extremity arterial duplex. Duplex scan. Patient status: Outpatient. Tables: Arterial flow: + +--------+--------+ |Location |V sys |V ed | + +--------+--------+ |Right femoral - proximal |88.8cm/s|--------| + +--------+--------+ |Right femoral - distal |-77cm/s |--------| + +--------+--------+ |Right popliteal - proximal |-103cm/s|--------| + +--------+--------+ |Right posterior tibial - distal|27.5cm/s|8.3cm/s | + +--------+--------+ |Right peroneal - distal |79.4cm/s|14.9cm/s| + +--------+--------+ RASHAUN and Stress table: +--------+ |Stage | +--------+ |Baseline| +--------+ (Report amended ) Electronically signed by: Stefan Lyon [id number]"
[2017-08-26 03:42] VITALS: BP 101/44
--- NOTE | 2017-08-26 07:12 | ACUTE CARE PROGRESS NOTE (QUA) ---
Progress Notes Subjective Date 08/26/17 Time 0709 Note Patient believes there is less pain in the leg this morning. Nursing staff reports patient required almost complete assistance to transfer from bed to chair because of complaint of leg pain. She does report a sensation of tightness in the lower leg Patient is resting comfortably. Lungs are clear to auscultation. Heart has a regular rate and rhythm. RIGHT leg is examined. She is to wound still present on the lateral aspect of the leg that are unchanged in size. Erythema is decreasing although still quite prominent on the anterior lynch. There is less tenderness today along the anterior lynch, ankle, foot than yesterday. Patient has improved range of motion in the ankle (although it is still quite poor). Plantar flexion strength is 4 out of 5. PT evaluation today. DC Unasyn and continue clindamycin. Continue to monitor INR. Monitor renal function. Hold losartan and Lasix. Continue bisoprolol. Patient is slowly improving Objective Findings Last VS-Temp:97.8 B/P:101/44 Pulse:82 Resp:18 SaO2:95 ROOM AIR Last weight lbs:169 oz:5 K.799 Method:Bed Scales Laboratory Tests 08/25/17 2025: POC Glucose 227 H 08/25/17 1656: POC Glucose 171 H 08/25/17 1147: POC Glucose 185 H Assessment/Plan Problem List 1. Cellulitis of leg, right 2. Ksneq-bx-xttjvwj kidney injury 3. At high risk for falls 4. Pacemaker 5. Diabetes mellitus 6. Ischemic cardiomyopathy 7. Deep vein thrombosis (DVT) of right lower extremity Patient condition Improving This inpt stay is expected to cross 2 MNs from start of care Yes at 0712
[2017-08-26 07:39] VITALS: BP 129/55
[2017-08-26 15:22] VITALS: BP 123/60
[2017-08-26 19:38] VITALS: BP 121/57
[2017-08-26 20:00] VITALS: BP 121/57
[2017-08-27 04:06] VITALS: BP 104/53
[2017-08-27 07:30] VITALS: BP 123/64
--- NOTE | 2017-08-27 07:36 | Discharge Summary ---
Demographics Admit date: 08/23/17 Discharge date: 08/27/17 Discharge diagnoses Problem List 1. Cellulitis of leg, right 2. Lufvi-mo-patrztg kidney injury 3. At high risk for falls 4. Pacemaker 5. Diabetes mellitus 6. Ischemic cardiomyopathy 7. Deep vein thrombosis (DVT) of right lower extremity History of present illness History of present illness 82 year old female with diabetes and ischemic cardiomyopathy with EF of 35% has been treated for a right leg cellulitis stemming from a wound on the lower right leg. Wound was the result of skin tears from fragile skin and edema. Patient had been treated witha course of Omnicef and after completing treatment leg remained erythematous with new onset of pain in the leg and foot. Patient has been admitted for IV antibiotics and pain control. Patient was admitted and a venous Doppler confirmed a RIGHT posterior tibial DVT. Arterial Doppler showed good blood flow to the RIGHT lower extremity. Patient was started on Unasyn and clindamycin for broad-spectrum antibiotic coverage of cellulitis of the leg. Patient was noted to have dependent edema in the body from the lower back down to the ankles. Patient's edema was all posterior in her extremities. Patient's blood pressure was low so antihypertensives were held except for bisoprolol. Patient had acute on chronic renal failure with creatinine of 3.4. Just 2 weeks ago patient's creatinine was 0.7. Patient was started on gentle IV fluid hydration. In regards to cellulitis there was mild improvement in erythema and pain in the leg daily. On the day of discharge erythema was almost completely resolved. Tenderness of the anterior lower leg and ankle had resolved. She will finish clindamycin when she returns to the half-way. The DVT was treated with warfarin. The patient had a therapeutic INR on presentation was continued on her warfarin. There is an interaction between her clindamycin and warfarin so her warfarin was decreased to 1.5 mg daily and a dose was actually held on August 26. Her dose on August 27 also be held. Patient will need INR drawn on August 28 with results called to Dr. Alcaraz. The patient's dependent edema is related to immobility. This will not respond to diuretics. We have tried as an outpatient to improve patient's diuresis with use of Lasix and spironolactone and this has resulted in acute kidney injury. The only effective treatment for the patient's edema long-term will be improving mobility. Without improving mobility this edema will not improve. For the patient's acute kidney injury she was started on gentle IV fluid hydration. While this did improve renal function slightly and also lead to an increase in edema. Patient also complained of some indigestion. She takes Protonix and was given some Maalox as well. On the the patient had improved enough for discharge back to the half-way. Discharge condition: Stable Mental status: Average Rehab potential: Fair Prognosis: Fair Medications Medications: Discharge meds are as noted. Follow up Follow up in office in: 3 DAYS with: Maciej Alcaraz MD at 0713
[2017-08-27] MEDS ORDERED: CLINDAMYCIN HC150 MG PO (07:39)
[2017-08-27 09:52] VITALS: BP 123/64
--- NOTE | 2017-08-27 09:55 | ACUTE CARE PROGRESS NOTE (QUA) ---
Progress Notes Subjective Date 08/27/17 Time 0954 Assessment/Plan Problem List 1. Cellulitis of leg, right 2. Qgmjv-pt-qbrwdra kidney injury 3. At high risk for falls 4. Pacemaker 5. Diabetes mellitus 6. Ischemic cardiomyopathy 7. Deep vein thrombosis (DVT) of right lower extremity This inpt stay is expected to cross 2 MNs from start of care Yes Antibiotic Stewardship (2) Infxn that will respond? Yes Right drug,dose,and route? Yes More targeted antbx? No at 0954
== END 2017-08-27 09:50 | DRG 300 ==
LOC: 2ND 16:15
PROVIDERS: Family Medicine
DX: I82.441 Acute embolism and thrombosis of right tibial vein (principal); L03.115 Cellulitis of right lower limb; N17.9 Acute kidney failure, unspecified; E11.22 Type 2 diabetes mellitus with diabetic chronic kidney disease; J44.9 Chronic obstructive pulmonary disease, unspecified; Z95.1 Presence of aortocoronary bypass graft; Z95.0 Presence of cardiac pacemaker; I12.9 Hypertensive chronic kidney disease with stage 1 through stage 4 chronic kidney disease, or unspecified chronic kidney disease; N18.9 Chronic kidney disease, unspecified; Z79.4 Long term (current) use of insulin; Z91.81 History of falling; I25.5 Ischemic cardiomyopathy; Z86.711 Personal history of pulmonary embolism; Z79.01 Long term (current) use of anticoagulants
CPT/HCPCS: J2405

== ENCOUNTER 2017-08-29 21:57 | Emergency (ER) | payer MEDICARE, OTHER ==
[~2017-08-29] VITALS: Ht 157.5 cm; Wt 113.4 kg
[~2017-08-29 21:57] MED LIST changes: +ATORVASTATIN CA10 MG PO; +ATORVASTATIN PO; +CLINDAMYCIN HC150 MG PO; +COUMADIN 2MG TAB2 MG PO; +DONEPEZIL 10MG10 MG PO; +IMODIUM A-D2 M3 PO; +IPRATROPIUM BROM3 M1 IH; +IPRATROPIUM BROM3 M2 IH; +LASIX 80MG. TAB80 MG PO; +LEADER MELATONIN5 MG PO; +LOPERAMIDE2 MG PO; +LOSARTAN POTASS50 MG PO; +NOVOLOG FLEX100 U/ML SC; +OMNICEF 300 MG300 MG PO; +PANTOPRAZOLE SO40 MG PO; +SANTYL250 U/GM EX; +TUSSIN DM CLEA120 ML PO; +VISTARIL25 MG PO
--- OUTSIDE RECORDS SUMMARY | 2017-08-29 22:07 | External Medical Summary Rpt | CCD ---
Author Author , SUNDAY BRAND Address Unknown Phone [email or web address] Purpose Continuity of Care Document - 03-06-2017 [...] Order Detail nces retati t Range on Whole blood INR measurement (08-28-2017) Prothro = 77.8 9.4-11. complet mbin 017 SECONDS 8 ed time (PT) in platele t poor p Comment: NOTIFICATION RESULT Whole = 7.06 0.9-1.1 complet blood 017 ed INR measure ment Comment: NOTIFICATION RESULT Comment: INDICATION INR RANGE Comment: Comment: THERAPY FOR DVT, PE, ATRIAL FIB; 2.0 - 3.0 Comment: PROPHYLAXIS FOR VTE Comment: Comment: THERAPY FOR MECHANICAL HEART 2.5 - 3.5 Comment: VALVE; PREVENTION OF SYSTEMIC Comment: EMBOLISM SECONDARY TO AMI Glucose capillary blood glucometer (08-27-2017 06:30) Glucose = 203 70-110 complet 017 mg/dl ed capilla 06:[address] Basic metabolic panel (08-27-2017 06:21) Serum = 67 7-18 complet or 017 mg/dL ed plasma 06:21 urea nitroge n measure men Serum = 8.9 8.5-10. complet or 017 mg/dL 1 ed plasma 06:21 calcium measure ment (mas Serum = 99 98-107 complet or 017 mmoL/L ed plasma 06:21 chlorid e measure ment (mo Carbon = 21 21.0-32 complet dioxide 017 mmoL/L .0 ed 06:21 measure ment Serum = 3.5 0.55-1. complet or 017 mg/dL 02 ed plasma 06:21 creatin ine measure ment ( Estimat = 15 50-200 complet ion of 017 ML/MIN ed creatin 06:21 ine renal clearan ce Serum = 134 136-145 complet sodium 017 mmoL/L ed measure 06:21 ment Serum = 5.4 3.5-5.1 complet potassi 017 mmoL/L ed um 06:21 measure ment Serum = 157 74-106 complet or 017 mg/dL ed plasma 06:21 glucose measure ment (mas Estimat = 12 59- complet ed 017 ML/MIN ed glomeru 06:21 lar filtrat ion rate (GF Comment: REFERENCE RANGE: >60 ML/MIN/1.73 SQUARE METERS Comment: If this patient is -[place], then multiply the Comment: result by 1.210. Whole blood INR measurement (08-27-2017 06:21) Comment: IS PATIENT ON ANTICOAGULANTS? Y Comment: LIST ANTICOAGULANTS: Comment: COUMADIN Comment: PTT RESULTS MUST BE CALLED IF PT ON HEPARIN!!! Y Whole = 4.41 0.9-1.1 complet blood 017 ed INR 06:21 measure ment Comment: NOTIFICATION RESULT Comment: Antonette Comment: INDICATION INR RANGE Comment: Comment: THERAPY FOR DVT, PE, ATRIAL FIB; 2.0 - 3.0 Comment: PROPHYLAXIS FOR VTE Comment: Comment: THERAPY FOR MECHANICAL HEART 2.5 - 3.5 Comment: VALVE; PREVENTION OF SYSTEMIC Comment: EMBOLISM SECONDARY TO AMI Prothro = 48.3 9.4-11. complet mbin 017 SECONDS 8 ed time 06:21 (PT) in platele t poor p Comment: NOTIFICATION RESULT Comment: Antonette Glucose capillary blood glucometer (08-26-2017 20:58) Glucose 08-26- = 155 70-110 complet 017 mg/dl ed capilla 20:[address] Glucose capillary blood glucometer (08-26-2017 16:59) Glucose 08-26-2 = 192 70-110 complet 017 mg/dl ed capilla 16:[address] Whole blood INR measurement (08-26-2017 06:10) Comment: IS PATIENT ON ANTICOAGULANTS? Y Comment: LIST ANTICOAGULANTS: Comment: COUMADIN Comment: PTT RESULTS MUST BE CALLED IF PT ON HEPARIN!!! Y Whole = 3.42 0.9-1.1 complet blood 017 ed INR 06:10 measure ment Comment: INDICATION INR RANGE Comment: Comment: THERAPY FOR DVT, PE, ATRIAL FIB; 2.0 - 3.0 Comment: PROPHYLAXIS FOR VTE Comment: Comment: THERAPY FOR MECHANICAL HEART 2.5 - 3.5 Comment: VALVE; PREVENTION OF SYSTEMIC Comment: EMBOLISM SECONDARY TO AMI Prothro = 37.4 9.4-11. complet mbin 017 SECONDS 8 ed time 06:10 (PT) in platele t poor p Basic metabolic panel (08-26-2017 06:10) Serum 08-26-2 = 60 7-18 complet or 017 mg/dL ed plasma 06:10 urea nitroge n measure men Serum = 8.2 8.5-10. complet or 017 mg/dL 1 ed plasma 06:10 calcium measure ment (mas Serum = 99 98-107 complet or 017 mmoL/L ed plasma 06:10 chlorid e measure ment (mo Carbon = 23 21.0-32 complet dioxide 017 mmoL/L .0 ed 06:10 measure ment Serum = 3.5 0.55-1. complet or 017 mg/dL 02 ed plasma 06:10 creatin ine measure ment ( Estimat = 15 50-200 complet ion of 017 ML/MIN ed creatin 06:10 ine renal clearan ce Estimat = 12 59- complet ed 017 ML/MIN ed glomeru 06:10 lar filtrat ion rate (GF Comment: REFERENCE RANGE: >60 ML/MIN/1.73 SQUARE METERS Comment: If this patient is -[place], then multiply the Comment: result by 1.210. Serum 11-17-2 = 180 74-106 complet or 017 mg/dL ed plasma 06:10 glucose measure ment (mas Serum 17-2 = 4.9 3.5-5.1 complet potassi 017 mmoL/L ed um 06:10 measure ment Serum 1117-2 = 133 136-145 complet sodium 017 mmoL/L ed measure 06:10 ment Glucose capillary blood glucometer (08-26-2017 06:08) Glucose 11-17-2 = 176 70-110 complet 017 mg/dl ed capilla 06:[address] Glucose capillary blood glucometer (08-25-2017 20:25) Glucose 11-16-2 = 227 70-110 complet 017 mg/dl ed capilla 20:[address] Glucose capillary blood glucometer (08-25-2017 16:56) Glucose 11-16-2 = 171 70-110 complet 017 mg/dl ed capilla 16:[address] Glucose capillary blood glucometer (08-25-2017 11:47) Glucose 11-16-2 = 185 70-110 complet 017 mg/dl ed capilla 11:[address] Basic metabolic panel (08-25-2017 06:03) Serum 11-16-2 = 135 136-145 complet sodium 017 mmoL/L ed measure 06:03 ment Serum 11-16-2 = 4.7 3.5-5.1 complet potassi 017 mmoL/L ed um 06:03 measure ment Serum 11-16-2 = 134 74-106 complet or 017 mg/dL ed plasma 06:03 glucose measure ment (mas Estimat 11-16-2 = 14 59- complet ed 017 ML/MIN ed glomeru 06:03 lar filtrat ion rate (GF Comment: REFERENCE RANGE: >60 ML/MIN/1.73 SQUARE METERS Comment: If this patient is -[place], then multiply the Comment: result by 1.210. Estimat 11-16-2 = 16 50-200 complet ion of 017 ML/MIN ed creatin 06:03 ine renal clearan ce Serum 16-2 = 3.1 0.55-1. complet or 017 mg/dL 02 ed plasma 06:03 creatin ine measure ment ( Carbon = 25 21.0-32 complet dioxide 017 mmoL/L .0 ed 06:03 measure ment Serum = 101 98-107 complet or 017 mmoL/L ed plasma 06:03 chlorid e measure ment (mo Serum = 8.3 8.5-10. complet or 017 mg/dL 1 ed plasma 06:03 calcium measure ment (mas Serum = 55 7-18 complet or 017 mg/dL ed plasma 06:03 urea nitroge n measure men Whole blood INR measurement (08-25-2017 06:03) Comment: IS PATIENT ON ANTICOAGULANTS? Y Comment: LIST ANTICOAGULANTS: Comment: COUMADIN Comment: PTT RESULTS MUST BE CALLED IF PT ON HEPARIN!!! Y Prothro = 32.9 9.4-11. complet mbin 017 SECONDS 8 ed time 06:03 (PT) in platele t poor p Whole = 3.01 0.9-1.1 complet blood 017 ed INR 06:03 measure ment Comment: INDICATION INR RANGE Comment: Comment: THERAPY FOR DVT, PE, ATRIAL FIB; 2.0 - 3.0 Comment: PROPHYLAXIS FOR VTE Comment: Comment: THERAPY FOR MECHANICAL HEART 2.5 - 3.5 Comment: VALVE; PREVENTION OF SYSTEMIC Comment: EMBOLISM SECONDARY TO AMI Glucose capillary blood glucometer (08-25-2017 05:55) Glucose = 136 70-110 complet 017 mg/dl ed capilla 05:[address] Glucose capillary blood glucometer (08-24-2017 20:16) Glucose = 172 70-110 complet 017 mg/dl ed capilla 20:[address] Glucose capillary blood glucometer (08-24-2017 17:18) Glucose = 166 70-110 complet 017 mg/dl ed capilla 17:[address] Glucose capillary blood glucometer (08-24-2017 12:13) Glucose = 176 70-110 complet 017 mg/dl ed capilla 12:[address] Whole blood INR measurement (08-24-2017 07:45) Comment: IS PATIENT ON ANTICOAGULANTS? Y Comment: LIST ANTICOAGULANTS: Comment: COUMADIN Comment: PTT RESULTS MUST BE CALLED IF PT ON HEPARIN!!! Y Prothro = 26.7 9.4-11. complet mbin 017 SECONDS 8 ed time 07:45 (PT) in platele t poor p Whole = 2.45 0.9-1.1 complet blood 017 ed INR 07:45 measure ment Comment: INDICATION INR RANGE Comment: Comment: THERAPY FOR DVT, PE, ATRIAL FIB; 2.0 - 3.0 Comment: PROPHYLAXIS FOR VTE Comment: Comment: THERAPY FOR MECHANICAL HEART 2.5 - 3.5 Comment: VALVE; PREVENTION OF SYSTEMIC Comment: EMBOLISM SECONDARY TO AMI Basic metabolic panel (08-24-2017 07:45) Serum = 134 136-145 complet sodium 017 mmoL/L ed measure 07:45 ment Serum = 4.4 3.5-5.1 complet potassi 017 mmoL/L ed um 07:45 measure ment Serum = 133 74-106 complet or 017 mg/dL ed plasma 07:45 glucose measure ment (mas Estimat = 14 59- complet ed 017 ML/MIN ed glomeru 07:45 lar filtrat ion rate (GF Comment: REFERENCE RANGE: >60 ML/MIN/1.73 SQUARE METERS Comment: If this patient is -[place], then multiply the Comment: result by 1.210. Estimat = 17 50-200 complet ion of 017 ML/MIN ed creatin 07:45 ine renal clearan ce Serum = 3.1 0.55-1. complet or 017 mg/dL 02 ed plasma 07:45 creatin ine measure ment ( Carbon = 25 21.0-32 complet dioxide 017 mmoL/L .0 ed 07:45 measure ment Serum = 100 98-107 complet or 017 mmoL/L ed plasma 07:45 chlorid e measure ment (mo Serum = 8.3 8.5-10. complet or 017 mg/dL 1 ed plasma 07:45 calcium measure ment (mas Serum = 55 7-18 complet or 017 mg/dL ed plasma 07:45 urea nitroge n measure men Glucose capillary blood glucometer (08-24-2017 06:25) Glucose 11-15-2 = 133 70-110 complet 017 mg/dl ed capilla 06:[address] Glucose capillary blood glucometer (08-23-2017 21:05) Glucose = 225 70-110 complet 017 mg/dl ed capilla 21:[address] Glucose capillary blood glucometer (08-23-2017 17:56) Glucose = 195 70-110 complet 017 mg/dl ed capilla 17:[address] Whole blood INR measurement (08-23-2017 17:20) Comment: IS PATIENT ON ANTICOAGULANTS? Y Comment: LIST ANTICOAGULANTS: Comment: COUMADIN Comment: PTT RESULTS MUST BE CALLED IF PT ON HEPARIN!!! Y Whole = 2.23 0.9-1.1 complet blood 017 ed INR 17:20 measure ment Comment: INDICATION INR RANGE Comment: Comment: THERAPY FOR DVT, PE, ATRIAL FIB; 2.0 - 3.0 Comment: PROPHYLAXIS FOR VTE Comment: Comment: THERAPY FOR MECHANICAL HEART 2.5 - 3.5 Comment: VALVE; PREVENTION OF SYSTEMIC Comment: EMBOLISM SECONDARY TO AMI Prothro = 24.3 9.4-11. complet mbin 017 SECONDS 8 ed time 17:20 (PT) in platele t poor p CBC w auto diff (08-23-2017 17:20) Blood = 6.5 4.8-10. complet leukocy 017 K/MM3 8 ed jose 17:20 count (number /volume ) Automat = 0.0 0-0.2 complet ed 017 K/MM3 ed blood 17:20 basophi l count (count/ vo Baso % = 0.3 % 0.1-2.0 complet 017 ed 17:20 Automat = 0.1 0.0-0.4 complet ed 017 K/mm3 ed blood 17:20 eosinop hil count Automat = 1.0 % 0.1-12. complet ed 017 0 ed blood 17:20 eosinop hils/10 0 leukocy t Blood = 5.0 1.8-7.8 complet granulo 017 K/mm3 ed cytes 17:20 automat ed count (numb Granulo = 77.3 37.0-80 complet cyte 017 % .0 ed percent 17:20 age Blood = 34.2 37.0-47 complet hematoc 017 % .0 ed rit 17:20 (volume fractio n) Blood = 10.7 12.2-16 complet hemoglo 017 g/dL .2 ed bin 17:20 measure ment (mass/v olum Absolut = 0.6 0.7-4.5 complet e 017 K/mm3 ed lymphoc 17:20 yte count Lymphoc = 8.7 % 10-50.0 complet yte 017 ed count, 17:20 blood, automat ed Mean = 25.2 27-31.2 complet corpusc 017 pg ed ular 17:20 hemoglo bin (MCH) determ Automat = 31.1 31.8-35 complet ed 017 g/dl .4 ed erythro 17:20 cyte mean corpusc ular h Automat = 81.2 82.2-97 complet ed 017 fl .8 ed erythro 17:20 cyte mean corpusc ular v Absolut = 0.8 0.1-1.0 complet e 017 K/mm3 ed monocyt 17:20 e count Daniels % = 12.8 1.7-9.3 complet 017 % ed 17:20 Automat = 9.5 7.4-10. complet ed 017 fl 4 ed blood 17:20 platele t mean volume malvin Blood = 136 142-424 complet platele 017 K/mm3 ed t count 17:20 Red = 4.22 4.2-5.4 complet blood 017 M/mm3 ed cell 17:20 count Automat = 17.9 11.5-17 complet ed 017 % .5 ed erythro 17:20 cyte distrib ution width Brain natriuretic peptide (08-23-2017 17:20) Brain = 549 0-100 complet natriur 017 pg/mL ed etic 17:20 peptide Comprehensive metabolic panel (08-23-2017 17:20) Serum 11-14-2 = 0.5 1.1-1.8 complet or 017 ed plasma 17:20 albumin /globul in mass ra Serum = 2.6 3.4-5.0 complet or 017 gm/dL ed plasma 17:20 albumin measure ment (mas Serum = 83 46-116 complet or 017 U/L ed plasma 17:20 alkalin e phospha tase malvin Serum = 3.0 0.2-1.0 complet or 017 mg/dL ed plasma 17:20 total bilirub in measure m Serum = 58 7-18 complet or 017 mg/dL ed plasma 17:20 urea nitroge n measure men Serum = 8.3 8.5-10. complet or 017 mg/dL 1 ed plasma 17:20 calcium measure ment (mas Serum = 98 98-107 complet or 017 mmoL/L ed plasma 17:20 chlorid e measure ment (mo Carbon = 26 21.0-32 complet dioxide 017 mmoL/L .0 ed 17:20 measure ment Serum = 3.4 0.55-1. complet or 017 mg/dL 02 ed plasma 17:20 creatin ine measure ment ( Estimat = 13 59- complet ed 017 ML/MIN ed glomeru 17:20 lar filtrat ion rate (GF Comment: REFERENCE RANGE: >60 ML/MIN/1.73 SQUARE METERS Comment: If this patient is -[place], then multiply the Comment: result by 1.210. Serum = 5.1 1.3-3.2 complet globuli 017 gm/dL ed n 17:20 measure ment (mass/v olume) Serum = 209 74-106 complet or 017 mg/dL ed plasma 17:20 glucose measure ment (mas Serum = 4.8 3.5-5.1 complet potassi 017 mmoL/L ed um 17:20 measure ment Serum = 132 136-145 complet sodium 017 mmoL/L ed measure 17:20 ment Serum = 16 15-37 complet or 017 U/L ed plasma 17:20 asparta te aminotr ansfera ALT = 9 U/L 12-78 complet (SGPT) 017 ed ser/mamta 17:20 s Protein = 7.7 6.4-8.2 complet total 017 gm/dL ed ser/mamta 17:20 s Urinalysis dipstick W Reflex Microscopic panel in [...] of 017 CLOUDY ed Urine 11:30 Bilirub NEGATIV NEG complet in 017 E ed [...]
--- OUTSIDE RECORDS SUMMARY | 2017-08-29 22:07 | External Medical Summary Rpt | CCD ---
Author Author , SUNDAY BRAND Address Unknown Phone [email or web address] Purpose Continuity of Care Document - 03-06-2017 [...] SQUARE METERS Comment: If this patient is -[place], then multiply the Comment: result by 1.210. [...] SQUARE METERS Comment: If this patient is -[place], then multiply the Comment: result by 1.210. [...] SQUARE METERS Comment: If this patient is -[place], then multiply the Comment: result by 1.210. [...] SQUARE METERS Comment: If this patient is -[place], then multiply the Comment: result by 1.210. [...] 017 K/mm3 ed monocyt 17:20 e count [place] % = 12.8 1.7-9.3 complet 017 % [...] SQUARE METERS Comment: If this patient is -[place], then multiply the Comment: result by 1.210. [...]
--- OUTSIDE RECORDS SUMMARY | 2017-08-29 22:08 | External Medical Summary Rpt | CCD ---
Author Author , MARYJANE Organization MARYJANE Address Unknown Phone [email or web address] Immunization Name Date Rout CVX Reac Dose Comm Prov Is Faci e tion ent ider Refu lity Give sed n Infl 09-3 135 999 Hist D203 No D203 uenz 0-20 oric 45 45 a, 16 al High Info rmat Dose ion - Sour ce Unsp ecif ied
--- OUTSIDE RECORDS SUMMARY | 2017-08-29 22:08 | External Medical Summary Rpt | CCD ---
Author Author , MARYJANE Organization MARYJANE Address Unknown Phone [email or web address] Immunization Name Date Rout CVX Reac Dose Comm Prov Is Faci e tion ent ider Refu lity Give sed n Infl 09-3 135 999 Hist D203 No D203 uenz 0-20 oric 45 45 a, 16 al High Info rmat Dose ion - Sour ce Unsp ecif ied
--- OUTSIDE RECORDS SUMMARY | 2017-08-29 22:09 | External Medical Summary Rpt ---
Author Author [employer], [employer] Organization [employer] Address Unknown Phone Unavailable Results INR in Blood by Coagulation assay Observa Value Referen Units Interpr Notes Date tion ce etation Range INR in 0.9 - 1.1 No High Aug 28 Blood by informati NOTIFICAT 2016 Coagulati on in ION on assay source RESULT data INDIC ATION INR RANGETHER APY FOR DVT, PE, ATRIAL FIB; 2.0 - 3.0PROPHY LAXIS FOR VTETHERAP Y FOR MECHANICA L HEART 2.5 - 3.5VALVE; PREVENTIO N OF SYSTEMICE MBOLISM SECONDARY TO AMI Prothromb 9.4 - SECONDS High Aug 28 in time 08.17 NOTIF2016 (PT) in ION Platelet RESULT poor plasma by Coagulati on assay Glucose [Mass/volume] in Capillary blood by Glucometer Observa Value Referen Units Interpr Notes Date tion ce etation Range Glucose 70 - 110 mg/dl High No Aug 27 [Mass/vol informati 2016 6:30 ume] in on in AM Capillary source blood by data Glucomete r INR in Blood by Coagulation assay Observa Value Referen Units Interpr Notes Date tion ce etation Range IS PATIENT ON ANTICOAGULANTS? Y LIST ANTICOAGULANTS: COUMADIN PTT RESULTS MUST BE CALLED IF PT ON HEPARIN!!! Y INR in 0.9 - 1.1 No High Aug 27 Blood by informati NOTIFICAT 2016 6:21 Coagulati on in ION AM on assay source RESULT data [place] ION INR RANGETHER APY FOR DVT, PE, ATRIAL FIB; 2.0 - 3.0PROPHY LAXIS FOR VTETHERAP Y FOR MECHANICA L HEART 2.5 - 3.5VALVE; PREVENTIO N OF SYSTEMICE MBOLISM SECONDARY TO AMI Prothromb 9.4 - SECONDS High Aug 27 in time 11.8 NOTIFICAT 2017 6:21 (PT) in ION AM Platelet RESULT poor [place] plasma by ne Coagulati on assay Basic metabolic panel in Blood Observa Value Referen Units Interpr Notes Date tion ce etation Range Urea 7 - 18 mg/dL High No Aug 27 nitrogen informati 2016 6:21 [Mass/vol on in AM ume] in source Serum or data Plasma Calcium 8.5 - mg/dL Normal No Aug 27 [Mass/vol 10.1 informati 2016 6:21 ume] in on in AM Serum or source Plasma data Chloride 98 - 107 mmoL/L Normal No Aug 27 [Moles/vo informati 2016 6:21 lume] in on in AM Serum or source Plasma data Carbon 21.0 - mmoL/L Low No Aug 27 dioxide, 32.0 informati 2017 6:21 total on in AM [Moles/vo source lume] in data Serum or Plasma Creatinin 0.55 - mg/dL High No Aug 27 e 1.02 informati 2016 6:21 [Mass/vol on in AM ume] in source Serum or data Plasma Creatinin 50 - 200 ML/MIN Low No Aug 27 e renal informati 2017 6:21 clearance on in AM source predicted data by Cockcroft -Gault formula Estimated 59- ML/MIN Low alert REFERENCE Aug 27 RANGE: 2017 6:21 glomerula >60 AM r ML/MIN/1. filtratio 73 SQUARE n rate METERSIf (GF this patient is -A merican, then multiply theresult by 1.210. Glucose 74 - 106 mg/dL High No Aug 27 [Mass/vol informati 2016 6:21 ume] in on in AM Serum or source Plasma data Potassium 3.5 - 5.1 mmoL/L High No Aug 27 informati 2017 6:21 [Moles/vo on in AM lume] in source Serum or data Plasma Sodium 136 - 145 mmoL/L Low No Aug 27 [Moles/vo informati 2016 6:21 lume] in on in AM Serum or source Plasma data Glucose [Mass/volume] in Capillary blood by Glucometer Observa Value Referen Units Interpr Notes Date tion ce etation Range Glucose 70 - 110 mg/dl High No Aug 26 [Mass/vol informati 2016 8:58 ume] in on in PM Capillary source blood by data Glucomete r Glucose [Mass/volume] in Capillary blood by Glucometer Observa Value Referen Units Interpr Notes Date tion ce etation Range Glucose 70 - 110 mg/dl High No Aug 26 [Mass/vol informati 2017 4:59 ume] in on in PM Capillary source blood by data Glucomete r Basic metabolic panel in Blood Observa Value Referen Units Interpr Notes Date tion ce etation Range Urea 7 - 18 mg/dL High No Aug 26 nitrogen informati 2017 6:10 [Mass/vol on in AM ume] in source Serum or data Plasma Calcium 8.5 - mg/dL Low No Aug 26 [Mass/vol 10.1 informati 2017 6:10 ume] in on in AM Serum or source Plasma data Chloride 98 - 107 mmoL/L Normal No Aug 26 [Moles/vo informati 2016 6:10 lume] in on in AM Serum or source Plasma data Carbon 21.0 - mmoL/L Normal No Aug 26 dioxide, 32.0 informati 2017 6:10 total on in AM [Moles/vo source lume] in data Serum or Plasma Creatinin 0.55 - mg/dL High No Aug 26 e 1.02 informati 2017 6:10 [Mass/vol on in AM ume] in source Serum or data Plasma Creatinin 50 - 200 ML/MIN Low No Aug 26 e renal informati 2017 6:10 clearance on in AM source predicted data by Cockcroft -Gault formula Estimated 59- ML/MIN Low alert REFERENCE Aug 26 RANGE: 2017 6:10 glomerula >60 AM r ML/MIN/1. filtratio 73 SQUARE n rate METERSIf (GF this patient is -A merican, then multiply theresult by 1.210. Glucose 74 - 106 mg/dL High No Aug 26 [Mass/vol informati 2017 6:10 ume] in on in AM Serum or source Plasma data Potassium 3.5 - 5.1 mmoL/L Normal No Aug 26 informati 2017 6:10 [Moles/vo on in AM lume] in source Serum or data Plasma Sodium 136 - 145 mmoL/L Low No Aug 26 [Moles/vo informati 2017 6:10 lume] in on in AM Serum or source Plasma data INR in Blood by Coagulation assay Observa Value Referen Units Interpr Notes Date tion ce etation Range IS PATIENT ON ANTICOAGULANTS? Y LIST ANTICOAGULANTS: COUMADIN PTT RESULTS MUST BE CALLED IF PT ON HEPARIN!!! Y INR in 0.9 - 1.1 No High INDICATIO Aug 26 Blood by informati N 2016 6:10 Coagulati on in AM on assay source INR data RANGETHER APY FOR DVT, PE, ATRIAL FIB; 2.0 - 3.0PROPHY LAXIS FOR VTETHERAP Y FOR MECHANICA L HEART 2.5 - 3.5VALVE; PREVENTIO N OF SYSTEMICE MBOLISM SECONDARY TO AMI Prothromb 9.4 - SECONDS High No Aug 26 in time 11.8 informati 2017 6:10 (PT) in on in AM Platelet source poor data plasma by Coagulati on assay Glucose [Mass/volume] in Capillary blood by Glucometer Observa Value Referen Units Interpr Notes Date tion ce etation Range Glucose 70 - 110 mg/dl High No Aug 26 [Mass/vol informati 2016 6:08 ume] in on in AM Capillary source blood by data Glucomete r Glucose [Mass/volume] in Capillary blood by Glucometer Observa Value Referen Units Interpr Notes Date ti ce etation Range Glucose 70 - 110 mg/dl High No Aug 25 [Mass/vol informati 2016 8:25 ume] in on in PM Capillary source blood by data Glucomete r Glucose [Mass/volume] in Capillary blood by Glucometer Observa Value Referen Units Interpr Notes Date ti ce etation Range Glucose 70 - 110 mg/dl High No Aug 25 [Mass/vol informati 2016 4:56 ume] in on in PM Capillary source blood by data Glucomete r Glucose [Mass/volume] in Capillary blood by Glucometer Observa Value Referen Units Interpr Notes Date ti ce etation Range Glucose 70 - 110 mg/dl High No Aug 25 [Mass/vol informati 2016 ume] in on in 11:47 AM Capillary source blood by data Glucomete r Basic metabolic panel in Blood Observa Value Referen Units Interpr Notes Date ti ce etation Range Urea 7 - 18 mg/dL High No Aug 25 nitrogen informati 2017 6:03 [Mass/vol on in AM ume] in source Serum or data Plasma Calcium 8.5 - mg/dL Low No Aug 25 [Mass/vol 10.1 informati 2016 6:03 ume] in on in AM Serum or source Plasma data Chloride 98 - 107 mmoL/L Normal No Aug 25 [Moles/vo informati 2016 6:03 lume] in on in AM Serum or source Plasma data Carbon 21.0 - mmoL/L Normal No Aug 25 dioxide, 32.0 informati 2016 6:03 total on in AM [Moles/vo source lume] in data Serum or Plasma Creatinin 0.55 - mg/dL High No Aug 25 e 1.02 informati 2016 6:03 [Mass/vol on in AM ume] in source Serum or data Plasma Creatinin 50 - 200 ML/MIN Low No Aug 25 e renal informati 2017 6:03 clearance on in AM source predicted data by Cockcroft -Gault formula Estimated 59- ML/MIN Low alert REFERENCE Aug 25 RANGE: 2017 6:03 glomerula >60 AM r ML/MIN/1. filtratio 73 SQUARE n rate METERSIf (GF this patient is -A merican, then multiply theresult by 1.210. Glucose 74 - 106 mg/dL High No Aug 25 [Mass/vol informati 2016 6:03 ume] in on in AM Serum or source Plasma data Potassium 3.5 - 5.1 mmoL/L Normal No Aug 25 informati 2016 6:03 [Moles/vo on in AM lume] in source Serum or data Plasma Sodium 136 - 145 mmoL/L Low No Aug 25 [Moles/vo informati 2016 6:03 lume] in on in AM Serum or source Plasma data INR in Blood by Coagulation assay Observa Value Referen Units Interpr Notes Date tion ce etation Range IS PATIENT ON ANTICOAGULANTS? Y LIST ANTICOAGULANTS: COUMADIN PTT RESULTS MUST BE CALLED IF PT ON HEPARIN!!! Y INR in 0.9 - 1.1 No High INDICATIO Aug 25 Blood by informati N 2017 6:03 Coagulati on in AM on assay source INR data RANGETHER APY FOR DVT, PE, ATRIAL FIB; 2.0 - 3.0PROPHY LAXIS FOR VTETHERAP Y FOR MECHANICA L HEART 2.5 - 3.5VALVE; PREVENTIO N OF SYSTEMICE MBOLISM SECONDARY TO AMI Prothromb 9.4 - SECONDS High No Aug 25 in time 11.8 informati 2016 6:03 (PT) in on in AM Platelet source poor data plasma by Coagulati on assay Glucose [Mass/volume] in Capillary blood by Glucometer Observa Value Referen Units Interpr Notes Date ti ce etation Range Glucose 70 - 110 mg/dl High No Aug 25 [Mass/vol informati 2016 5:55 ume] in on in AM Capillary source blood by data Glucomete r Glucose [Mass/volume] in Capillary blood by Glucometer Observa Value Referen Units Interpr Notes Date ti ce etation Range Glucose 70 - 110 mg/dl High No Aug 24 [Mass/vol informati 2016 8:16 ume] in on in PM Capillary source blood by data Glucomete r Glucose [Mass/volume] in Capillary blood by Glucometer Observa Value Referen Units Interpr Notes Date ti ce etation Range Glucose 70 - 110 mg/dl High No Aug 24 [Mass/vol informati 2016 5:18 ume] in on in PM Capillary source blood by data Glucomete r Glucose [Mass/volume] in Capillary blood by Glucometer Observa Value Referen Units Interpr Notes Date ti ce etation Range Glucose 70 - 110 mg/dl High No Aug 24 [Mass/vol informati 2016 ume] in on in 12:13 PM Capillary source blood by data Glucomete r INR in Blood by Coagulation assay Observa Value Referen Units Interpr Notes Date ti ce etation Range IS PATIENT ON ANTICOAGULANTS? Y LIST ANTICOAGULANTS: COUMADIN PTT RESULTS MUST BE CALLED IF PT ON HEPARIN!!! Y INR in 0.9 - 1.1 No High INDICATIO Aug 24 Blood by informati N 2016 7:45 Coagulati on in AM on assay source INR data RANGETHER APY FOR DVT, PE, ATRIAL FIB; 2.0 - 3.0PROPHY LAXIS FOR VTETHERAP Y FOR MECHANICA L HEART 2.5 - 3.5VALVE; PREVENTIO N OF SYSTEMICE MBOLISM SECONDARY TO AMI Prothromb 9.4 - SECONDS High No Aug 24 in time 11.8 informati 2016 7:45 (PT) in on in AM Platelet source poor data plasma by Coagulati on assay Basic metabolic panel in Blood Observa Value Referen Units Interpr Notes Date ti ce etation Range Urea 7 - 18 mg/dL High No Aug 24 nitrogen informati 2016 7:45 [Mass/vol on in AM ume] in source Serum or data Plasma Calcium 8.5 - mg/dL Low No Aug 24 [Mass/vol 10.1 informati 2016 7:45 ume] in on in AM Serum or source Plasma data Chloride 98 - 107 mmoL/L Normal No Aug 24 [Moles/vo informati 2016 7:45 lume] in on in AM Serum or source Plasma data Carbon 21.0 - mmoL/L Normal No Aug 24 dioxide, 32.0 informati 2016 7:45 total on in AM [Moles/vo source lume] in data Serum or Plasma Creatinin 0.55 - mg/dL High No Aug 24 e 1.02 informati 2016 7:45 [Mass/vol on in AM ume] in source Serum or data Plasma Creatinin 50 - 200 ML/MIN Low No Aug 24 e renal informati 2017 7:45 clearance on in AM source predicted data by Cockcroft -Gault formula Estimated 59- ML/MIN Low alert REFERENCE Aug 24 RANGE: 2017 7:45 glomerula >60 AM r ML/MIN/1. filtratio 73 SQUARE n rate METERSIf (GF this patient is -A merican, then multiply theresult by 1.210. Glucose 74 - 106 mg/dL High No Aug 24 [Mass/vol informati 2016 7:45 ume] in on in AM Serum or source Plasma data Potassium 3.5 - 5.1 mmoL/L Normal No Aug 24 informati 2016 7:45 [Moles/vo on in AM lume] in source Serum or data Plasma Sodium 136 - 145 mmoL/L Low No Aug 24 [Moles/vo informati 2016 7:45 lume] in on in AM Serum or source Plasma data Glucose [Mass/volume] in Capillary blood by Glucometer Observa Value Referen Units Interpr Notes Date tion ce etation Range Glucose 70 - 110 mg/dl High No Aug 24 [Mass/vol informati 2016 6:25 ume] in on in AM Capillary source blood by data Glucomete r Glucose [Mass/volume] in Capillary blood by Glucometer Observa Value Referen Units Interpr Notes Date ti ce etation Range Glucose 70 - 110 mg/dl High No Aug 23 [Mass/vol informati 2016 9:05 ume] in on in PM Capillary source blood by data Glucomete r Glucose [Mass/volume] in Capillary blood by Glucometer Observa Value Referen Units Interpr Notes Date ti ce etation Range Glucose 70 - 110 mg/dl High No Aug 23 [Mass/vol informati 2016 5:56 ume] in on in PM Capillary source blood by data Glucomete r Natriutietic peptide B [Mass/volume] in Serum or Plasma Observa Value Referen Units Interpr Notes Date tion ce etation Range Natriutie 0 - 100 pg/mL High No Aug 23 tic informati 2016 5:20 peptide B on in PM source [Mass/vol data ume] in Serum or Plasma Comprehensive metabolic 2000 panel in Serum or Plasma Observa Value Referen Units Interpr Notes Date tion ce etation Range Albumin/G 1.1 - 1.8 No Low No Aug 23 lobulin informati informati 2016 5:20 [Mass on in on in PM ratio] in source source Serum or data data Plasma Albumin 3.4 - 5.0 gm/dL Low No Aug 23 [Mass/vol informati 2016 5:20 ume] in on in PM Serum or source Plasma data Alkaline 46 - 116 U/L Normal No Aug 23 phosphata informati 2016 5:20 se on in PM [Enzymati source c data activity/ volume] in Serum or Plasma Bilirubin 0.2 - 1.0 mg/dL High No Aug 23 .total informati 2016 5:20 [Mass/vol on in PM ume] in source Serum or data Plasma Urea 7 - 18 mg/dL High No Aug 23 nitrogen informati 2016 5:20 [Mass/vol on in PM ume] in source Serum or data Plasma Calcium 8.5 - mg/dL Low Aug 23 [Mass/vol 10.1 informati 2016 5:20 ume] in on in PM Serum or source Plasma data Chloride 98 - 107 mmoL/L Normal No Aug 23 [Moles/vo informati 2016 5:20 lume] in on in PM Serum or source Plasma data Carbon 21.0 - mmoL/L Normal No Aug 23 dioxide, 32.0 informati 2016 5:20 total on in PM [Moles/vo source lume] in data Serum or Plasma Creatinin 0.55 - mg/dL High No Aug 23 e 1.02 informati 2016 5:20 [Mass/vol on in PM ume] in source Serum or data Plasma Estimated 59- ML/MIN Low alert REFERENCE Aug 23 RANGE: 2017 5:20 glomerula >60 PM r ML/MIN/1. filtratio 73 SQUARE n rate METERSIf (GF this patient is -A merican, then multiply theresult by 1.210. Globulin 1.3 - 3.2 gm/dL High No Aug 23 [Mass/vol informati 2016 5:20 ume] in on in PM Serum source data Glucose 74 - 106 mg/dL High No Aug 23 [Mass/vol informati 2016 5:20 ume] in on in PM Serum or source Plasma data Potassium 3.5 - 5.1 mmoL/L Normal No Aug 232016 5:20 [Moles/vo on in PM lume] in source Serum or data Plasma Sodium 136 - 145 mmoL/L Low No Aug 23 [Moles/vo ati 2016 5:20 lume] in on in PM Serum or source Plasma data Aspartate 15 - 37 U/L Normal No Aug 232016 5:20 aminotran on in PM sferase source [Enzymati data c activity/ volume] in Serum or Plasma Alanine 12 - 78 U/L Low No Aug 23 aminotran 2016 5:20 sferase on in PM [Enzymati source c data activity/ volume] in Serum or Plasma Protein 6.4 - 8.2 gm/dL Normal No Aug 23 [Mass/vol informati 2016 5:20 ume] in on in PM Serum or source Plasma data CBC W Auto Differential panel in Blood Observa Value Referen Units Interpr Notes Date tion ce etation Range Basophils 0 - 0.2 K/MM3 Normal No Aug 232016 5:20 [#/volume on in PM ] in source Blood by data Automated count Basophils 0.1 - 2.0 % Normal No Aug 23 /2016 5:20 leukocyte on in PM s in source Blood by data Automated count Eosinophi 0.0 - 0.4 K/mm3 Normal No Aug 23 ls ati 2016 5:20 [#/volume on in PM ] in source Blood by data Automated count Eosinophi 0.1 - % Normal No Aug 23 ls/100 12.0 inform2016 5:20 leukocyte on in PM s in source Blood by data Automated count Granulocy 1.8 - 7.8 K/mm3 Normal No Aug 23 jose 2016 5:20 [#/volume on in PM ] in source Blood by data Automated count Granulocy 37.0 - % Normal No Aug 14 jose/100 80.0 informati 2016 5:20 leukocyte on in PM s in source Blood by data Automated count Hematocri 37.0 - % Low No Aug 14 t [Volume 47.0 informati 2016 5:20 on in PM Fraction] source of Blood data Hemoglobi 12.2 - g/dL Low No Aug 14 n 16.2 informati 2016 5:20 [Mass/vol on in PM ume] in source Blood data Lymphocyt 0.7 - 4.5 K/mm3 Low No Aug 14 es informati 2017 5:20 [#/volume on in PM ] in source Unspecifi data ed specimen by Automated count Lymphocyt 10 - 50.0 % Low No Aug 14 es informati 2016 5:20 [#/volume on in PM ] in source Unspecifi data ed specimen by Automated count Erythrocy 27 - 31.2 pg Low No Aug 14 te mean informati 2016 5:20 corpuscul on in PM ar source hemoglobi data n [Entitic mass] Erythrocy 31.8 - g/dl Low No Aug 14 te mean 35.4 informati 2017 5:20 corpuscul on in PM ar source hemoglobi data n concentra tion [Mass/vol ume] by Automated count Erythrocy 82.2 - fl Low No Aug 14 te mean 97.8 informati 2017 5:20 corpuscul on in PM ar volume source [Entitic data volume] by Automated count Monocytes 0.1 - 1.0 K/mm3 Normal No Aug 14 ati 2016 5:20 [#/volume on in PM ] in source Blood by data Automated count Monocytes 1.7 - 9.3 % High No Aug 14 /100 informati 2017 5:20 leukocyte on in PM s in source Blood by data Automated count Platelet 7.4 - fl Normal No Aug 14 mean 10.4 informati 2016 5:20 volume on in PM [Entitic source volume] data in Blood by Automated count Platelets 142 - 424 K/mm3 Low No Aug 14 informati 2017 5:20 [#/volume on in PM ] in source Blood data Erythrocy 4.2 - 5.4 M/mm3 Normal No Aug 14 jose informati 2016 5:20 [#/volume on in PM ] in source Amniotic data fluid Erythrocy 11.5 - % High No Aug 14 te 17.5 informati 2017 5:20 distribut on in PM ion width source [Entitic data volume] by Automated count Leukocyte 4.8 - K/MM3 Normal No Aug 23 s 10.8 informati 2016 5:20 [#/volume on in PM ] in source Blood data INR in Blood by Coagulation assay Observa Value Referen Units Interpr Notes Date tion ce etation Range IS PATIENT ON ANTICOAGULANTS? Y LIST ANTICOAGULANTS: COUMADIN PTT RESULTS MUST BE CALLED IF PT ON HEPARIN!!! Y INR in 0.9 - 1.1 No High INDICATIO Aug 23 Blood by informati N 2017 5:20 Coagulati on in PM on assay source INR data RANGETHER APY FOR DVT, PE, ATRIAL FIB; 2.0 - 3.0PROPHY LAXIS FOR VTETHERAP Y FOR MECHANICA L HEART 2.5 - 3.5VALVE; PREVENTIO N OF SYSTEMICE MBOLISM SECONDARY TO AMI Prothromb 9.4 - SECONDS High No Aug 23 in time 11.8 informati 2016 5:20 (PT) in on in PM Platelet source poor data plasma by Coagulati on assay Urinalysis dipstick W Reflex Microscopic panel in Urine Observa Value Referen Units Interpr Notes Date tion ce etation Range Appeara SL CLEAR No No No Sep 10 nce of CLOUDY informa informa informa 2016 Urine tion in tion in tion in 11:30 source source source AM data data data Bacteri 4+ O No No No Sep 10 a informa informa informa 2016 [Presen tion in tion in tion in 11:30 ce] in source source source AM Urine data data data sedimen t by Light microsc opy Bilirub NEGATIV NEG No No No Sep 10 in E informa informa informa 2016 [Presen tion [...] No No Sep 10 E informa informa 2016 [Presen tion in tion [...] mg/dL High No Sep 7 nitrogen informati 2016 [Mass/vol on in 10:07 AM ume] in source Serum or data Plasma CREATININE Observa Value Referen Units Interpr Notes Date tion ce etation Range Creatinin 0.55 - mg/dL High No Sep 7 e 1.02 informati 2016 [Mass/vol on in 10:07 AM ume] in [...] Value Referen Units Interpr Notes Date ti etation Range Glucose 70 - 110 mg/dl [...] AM on assay source RESULT data [place] ION INR RANGETHER APY FOR DVT, PE, [...] mg/dL High No March 08 [Mass/vol informati 2017 6:15 ume] in on in AM Serum or source Plasma data Potassium 3.5 - 5.1 mmoL/L Normal No March 08 informati 2017 6:15 [Moles/vo on in AM lume] in source Serum or data Plasma Sodium 136 - 145 mmoL/L Low No March 08 [Moles/vo informati 2017 6:15 lume] in on in AM Serum [...] AM on assay source RESULT data [place] ION INR RANGETHER APY FOR DVT, PE, [...] mmoL/L Normal No March 07 [Moles/vo informati 2017 7:10 lume] in on in AM Serum or source Plasma data Carbon 21.0 - mmoL/L Normal No March 07 dioxide, 32.0 informati 2016 7:10 total on in AM [Moles/vo source lume] in data Serum or Plasma Creatinin 0.55 - mg/dL High No March 07 e 1.02 informati 2016 7:10 [Mass/vol on in AM [...] 06 coronav DETECTE DETECTE informa informa informa 2016 irus D tion in tion in tion [...] 06 metapne DETECTE DETECTE informa informa informa 2016 umoviru D tion in tion in tion [...] DETECTE DETECTE informa informa informa 2017 virus 1 D tion in tion in [...] 06 gene+Ent DETECTE DETECTE informa informa informa 2017 eroviru D tion in tion in tion in 6:18 PM s RNA source source source [Presen data data data ce] in Unspeci fied specime n by Probe & target amplifi cation method Respira NOT NOT No No No March 06 tory DETECTE DETECTE informa informa informa 2017 syncyti D tion in tion in tion [...] 59- ML/MIN Low REFERENCE March 06 RANGE: 2017 4:20 glomerula >60 PM r ML/MIN/1. filtratio 73 SQUARE n rate METERSIf (GF this patient is -A merican, then multiply theresult by 1.210. Globulin 1.3 - 3.2 gm/dL High No March 06 [Mass/vol informati 2017 4:20 ume] in on in PM Serum source data Glucose 74 - 106 mg/dL High No March 06 [Mass/vol informati 2016 4:20 ume] in on in PM Serum or source Plasma data Potassium 3.5 - 5.1 mmoL/L Normal No March 06 informati 2016 4:20 [Moles/vo on in PM lume] in source Serum or data Plasma Sodium 136 - 145 mmoL/L Normal No March 06 [Moles/vo informati 2016 4:20 lume] in on in PM Serum or source Plasma data Aspartate 15 - 37 U/L Normal No March 062016 4:20 aminotran on in PM sferase source [Enzymati data c activity/ volume] in Serum or Plasma Alanine 12 - 78 U/L Normal No March 06 aminotran 2016 4:20 sferase on in PM [Enzymati source c data activity/ volume] in Serum or Plasma Protein 6.4 - 8.2 gm/dL High No March 06 [Mass/vol 2016 4:20 ume] in on in PM Serum or source Plasma data CBC W Auto Differential panel in Blood Observa Value Referen Units Interpr Notes Date tion ce etation Range Basophils 0 - 0.2 K/MM3 Normal No March 062016 4:20 [#/volume on in PM ] in source Blood by data Automated count Basophils 0.1 - 2.0 % Normal No March 06 / inform2016 4:20 leukocyte on in PM s in source Blood by data Automated count Eosinophi 0.0 - 0.4 K/mm3 Normal No March 06 ls 2016 4:20 [#/volume on in PM ] in source Blood by data Automated count Eosinophi 0.1 - % Normal No March 06 ls/100 12.0 inform2016 4:20 leukocyte on in PM s in source Blood by data Automated count Granulocy 1.8 - 7.8 K/mm3 Normal No March 06 jose 2016 4:20 [#/volume on in PM ] in source Blood by data Automated count Granulocy 37.0 - % Normal No March 06 jose/100 80.0 2016 4:20 leukocyte on in PM s in source Blood by data Automated count Hematocri 37.0 - % Normal March 06 t [Volume 47.0 ati 2016 4:20 on in PM Fraction] source of Blood data Hemoglobi 12.2 - g/dL Normal No March 06 n 16.2 ati 2016 4:20 [Mass/vol on in PM ume] in source Blood data Lymphocyt 0.7 - 4.5 K/mm3 Normal No March 06 es ati 2016 4:20 [#/volume on in PM ] in source Unspecifi data ed specimen by Automated count Lymphocyt 10 - 50.0 % Normal No March 06 es ati 2016 4:20 [#/volume on in PM ] in source Unspecifi data ed specimen by Automated count Erythrocy 27 - 31.2 pg Normal No March 06 te mean inform2016 4:20 corpuscul on in PM ar source hemoglobi data n [Entitic mass] Erythrocy 31.8 - g/dl Normal No March 06 te mean 35.4 inform2016 4:20 corpuscul on in PM ar source hemoglobi data n concentra tion [Mass/vol ume] by Automated count Erythrocy 82.2 - fl Normal March 06 te mean 97.8 informati 2016 4:20 corpuscul on in PM ar volume source [Entitic data volume] by Automated count Monocytes 0.1 - 1.0 K/mm3 Normal No March 06 informati 2016 4:20 [#/volume on in PM ] in source Blood by data Automated count Monocytes 1.7 - 9.3 % Normal No March 06 /100 informati 2016 4:20 leukocyte on in PM s in source Blood by data Automated count Platelet 7.4 - fl Low March 06 mean 10.4 informati 2016 4:20 volume on in PM [Entitic source volume] data in Blood by Automated count Platelets 142 - 424 K/mm3 Normal No March 06 informati 2016 4:20 [...] Automated count Leukocyte 4.8 - K/MM3 Low March 06 s 10.8 informati 2016 4:20 [...] No March 06 in time 11.8 informati 2017 4:20 (PT) in on in PM Platelet source poor data plasma by Coagulati on assay
[2017-08-29] MEDS ORDERED: WARFARIN SOD2 MG PO (22:14)
[2017-08-29] MEDS ORDERED: FUROSEMIDE80 M1 PO (22:15)
[2017-08-29 22:47] LABS: HEMOGLOBIN 11.6 g/dL (12.2-16.2); LYMPH # 0.5 K/mm3 (0.7-4.5); LYMPH % 9.1 % (10-50.0)
[2017-08-29 22:58] LABS: URINE BILIRUBIN - DIPSTICK NEGATIVE (NEG); URINE BLOOD 3+ (NEG)
--- NOTE | 2017-08-29 23:30 | Emergency Room Report ---
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 N Clinical Suspician of Infection? N Mental Status: 1 - Regular (Normal Baseline) Sepsis Risk:Low Sepsis Risk Have you (or family members/close friends) recently traveled outside the [place]? N If Yes, where/when: Have you had exposure to infectious disease within the past month? N TB? Other? Specify: Source patient, RN notes reviewed, family, EMS, shelter records, old records Exam Limitations no limitations Comment pt sent from [facility] for eval of change mental status - pt unable to give specific hx but no chest pain or trauma- she has been in hospital for dvt and cellulitis Cardiac Chest Pain Chest pain indicative of cardiac No Timing/Duration this evening Severity moderate ALLERGIES Coded Allergies: Tetracyclines (10/12/15) cephalexin (From KEFLEX) (10/12/15) Home Medications Active Scripts CLINDAMYCIN HCL (Clindamycin 150MG CAP) 150 MG PO TID #18 CAPSULE Prov: 08/27/17 Reported Medications Warfarin Sodium 2 MG PO DAILY #14 Furosemide 80 MG PO DAILY #60 GUAIFENESIN/DEXTROMETHORPHAN (Tussin Dm Liquid) 10 ML PO Q6HP PRN COUGH ATORVASTATIN CALCIUM (ATORVASTATIN 10MG) 10 MG PO QHS BISOPROLOL FUMARATE (Bisoprolol 5MG) 2.5 MG PO DAILY DONEPEZIL HCL (Donepezil 10MG Tablet) 5 MG PO QHS IPRATROPIUM/ALBUTEROL SULFATE (Iprat-Albut 0.5-3(2.5) MG/3 Ml) 3 ML IH TID ALBUTEROL-IPRATROPIUM (Iprat-Albut 0.5-3(2.5) MG/3 Ml) 3 ML IH TIDP PRN BREATHING Melatonin 5 MG PO QHS Insulin Aspart, Recombinant (Novolog Flexpen) 2 UNITS SC ACHS Pantoprazole Sodium (Pantoprazole 40MG) 40 MG PO DAILY Hydroxyzine Pamoate (Vistaril) 25 MG PO Q6HP PRN ANXIETY LOPERAMIDE HCL (Loperamide) 2 MG PO Q6HP PRN DIARRHEA Discontinued Reported Medications WARFARIN SOD (Coumadin) 2 MG PO DAILY Furosemide (Lasix 80MG) 80 MG PO BIDL Losartan Potassium (Losartan 50MG) 25 MG PO DAILY COLLAGENASE CLOSTRIDIUM HIST. (Santyl) 15 GM EX DAILY History Medical History General CAD? Yes Angina: Yes VT: Yes Hypertension? Yes Hyperlipidemia? Yes CHF? Yes DVT? No PE? No COPD? Yes Asthma? No Anemia? No GERD? Yes Gastric ulcers? Yes GI Bleed? No Hernia? No Thyroid Problems? No Hypothyroidism? No CVA? No Seizures? No Diabetes? 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 Yes Renal Insuffiency? No End Stage Renal Disease? No UTI? Yes Stones? No BPH? No GB Disease: Yes Nephritic Syndrome? No Asplenia? No Hepatitis? No Sickle Cell Disease? No Arthritis? Yes Migraines? No Cataracts? Yes Glaucoma? Yes MRSA? No HIV? No TB? No Anxiety? Yes Depression? Yes Cancer? Yes Site: SKIN Immunization Hx DT/Tetanus Unknown Flu 2016-SN Pneumonia Received In Past Surgical Hx Previous Surgery?Y Coronary Artery Bypass HYSTERECTOMY Cholecystectomy APPY D & C LASER ON ABIOLA EYES LEFT HAND SURGERY 01/17 RIGHT HAND SURGERY 2003 CATARACT REMOVEAL ABIOLA EYE L SHOULDER PACEMAKER INSERTION Family History Family Hx Diabetes Yes CAD No Hypertension Yes Hyperlipidemia Yes Cancer Yes TB No Social History Smoking Hx Smoker: Never Smoker Tobacco: No Packs/day N/A Alcohol Alcohol: No Drugs none Review of Systems All Other Systems Reviewed and Negative Constitutional see HPI, denies fever, weakness Eyes denies drainage ENT denies: ear discharge, epistaxis, throat pain. Respiratory denies cough, denies shortness of breath, denies wheezing Cardiovascular denies chest pain, denies syncope Gastrointestinal denies abdominal pain, denies diarrhea, denies vomiting Genitourinary denies: dysuria, frequency, hesitancy, hematuria. Musculoskeletal denies back pain, denies joint pain, denies joint swelling, denies neck pain Skin denies rash Psychiatric/Neurological see HPI, denies headache, denies seizure, other Physical Exam Vital Signs Vital Signs Date Time Temp Pulse Resp B/P Pulse O2 O2 Flow FiO2 Ox Delivery Rate 08/294 97.8 69 18 115/66 100 2 - WBC >12,000 or <4,000 or 10% bands? 2 or more SIRS Criteria Met? B/P:106/64 MAP:82 Creatinine >2.0? UA output<0.5ml/kg/hr for 2 hrs? Platelet count >100,000? Lactate >2.0mmol/1? INR >1.2 or PTT > than 60 sec? Evidence of Organ Dysfunction? Provider documented clinical suspician of infection? N Sepsis Criteria Count: 0 Sepsis Risk: Low Sepsis Risk General Appearance no apparent distress Eye Exam - bilateral eye PERRL, bilateral eye EOMI Ear, Nose, Throat normal ENT inspection Neck non-tender, limited range of motion Respiratory Status No: respiratory distress. Lung Sounds bilateral: decreased breath sounds. Cardiovascular regular rate/rhythm, systolic murmur Peripheral Pulses Pulses normal Yes Gastrointestinal soft, no organomegaly, no pulsatile mass, no guarding, no rebound Extremities no calf tenderness, pedal edema Strength 3 Lower Ext (L), 3 Lower Ext (R), 4 Upper Ext (L), 4 Upper Ext (R) Rectal deferred Neurologic alert, nurse general duty II-XII nml as tested, no focal changes Glascow Coma Scale Glascow Coma Scale Response Value EYE response: 4 Spontaneously 4 MOTOR response: 6 OBEYS 6 VERBAL response: 5 Oriented & Converses 5 Total 15 Reflexes Reflexes normal No Mental status sommulent Skin no rash cons.w/shingles Medical Decision Making LABS/Meds/Orders Pt receiving controlled substance in ED? No Results/Orders Laboratory Tests 08/29/175: Urine Color YELLOW, Urine Appearance CLEAR, Urine pH 5.5, Ur Specific [place] 1.025, Urine Protein NEGATIVE, Urine Ketones NEGATIVE, Urine Blood 3+ H, Urine Nitrate NEGATIVE, Urine Bilirubin NEGATIVE, Urine Urobilinogen 0.2, Ur Leukocyte Esterase 1+ H, Urine RBC NONE, Urine WBC 10-20, Ur Squamous Epith Cells 3-5, Urine Bacteria TRACE, Urine Yeast 4+, Urine Glucose NEGATIVE 08/29/170: Lactic Acid 2.4 H 08/29/17 2230: Sodium 132 L, Potassium 4.9, Chloride 97 L, Carbon Dioxide 22, BUN 79 H, Creatinine 3.7 H, Estimated Creat Clear 20 L, Estimated GFR (MDRD) 12 *L, Glucose 173 H, Calcium 8.4 L, Total Bilirubin 2.4 H, AST 44 H, ALT 21, Alkaline Phosphatase 91, Creatine Kinase 31, CK-MB (CK-2) Rel Index 2.6, CK and CKMB Interp 0.8, Troponin I 0.06, Total Protein 8.0, Albumin 2.5 L, Globulin 5.5 H, Albumin/Globulin Ratio 0.5 L, PT 25.6 H, INR 2.35 H, WBC 6.0, RBC 4.26, Hgb 11.6 L, Hct 35.3 L, MCV 83.0, RDW 22.4 H, Plt Count 137 L, MPV 9.8 , Gran % 77.0, Gran # 4.6, Lymphocytes % 9.1 L, Monocytes % 13.0 H, Eosinophils % 0.7, Basophils % 0.2, Lymphocytes # 0.5 L, Monocytes # 0.8, Eosinophils # 0.0, Basophils # 0.0, PUBS MCHC 32.8, MCH 27.2 Current Medication Orders Sig/Benito Start time Last Medication Dose Route Stop Time Status Admin Sodium Chloride 50 ML .STK-MED ONE 08/29 2351 DC IV Ceftriaxone Sodium 0 .STK-MED ONE 08/29 2350 DCr IV Ceftriaxone Sodium 1 GM ONCE ONE 08/29 2345 r Sodium Chloride 50 ML IV 08/30 0014 Sodium Chloride 10 ML PRN PRN 08/29 2215 AC IV 08/30 2202 Orders Procedure Date/time Status LACTIC ACID FOLLOW UP 08/29 2312 Active CULTURE, URINE 08/29 2245 Active PROTHROMBIN TIME 08/29 2213 Complete ELECTROCARDIOGRAM REQUEST 08/29 2203 Active IV SALINE LOCK 08/29 2203 Active URINARY CATHETER INSERT 08/29 2203 Active CULTURE, BLOOD 08/29 2203 Active URINALYSIS/COMPLETE 08/29 2203 Complete LACTIC ACID 08/29 2203 Complete CBC WITH AUTO DIFF 08/29 2203 Complete CARDIAC ENZYMES 08/29 2203 Complete CHEM 12 PROFILE 08/29 2203 Complete CM/EKG CM/spray painter Rhythm Paced Rhythm Departure Departure Time of Disposition 2353 Disposition DC Home or Self Care(routine) Clinical Impression Primary Impression: UTI (urinary tract infection) Qualifiers: Urinary tract infection type: acute cystitis Hematuria presence: without hematuria Qualified Code: N30.00 - Acute cystitis without hematuria Secondary Impressions: Renal insufficiency Condition STABLE Referrals Maciej Sosa MD (Family) discussed with dr sosa Patient Instructions DI for Urinary Tract Infection (UTI) Additional Instructions resume prev meds Discharge Counseling Counseled pt/family regarding diagnosis, test results, medications/RX, follow up needs ED Critical Care Critical Care No at 0000
--- NOTE | 2017-08-29 23:30 | Emergency Room Report ---
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 N Clinical Suspician of Infection? N Mental Status: 1 - Regular (Normal Baseline) Sepsis Risk:Low Sepsis Risk Have you (or family members/close friends) recently traveled outside the [place]? N If Yes, where/when: Have you had exposure to infectious disease within the past month? N TB? Other? Specify: Source patient, RN notes reviewed, family, EMS, longterm records, old records Exam Limitations no limitations Comment [facility] change mental status - pt unable to give specific hx but no chest pain or trauma- she has been in hospital for dvt and cellulitis Cardiac Chest Pain Chest pain indicative of cardiac No Timing/Duration this evening Severity moderate ALLERGIES Coded Allergies: Tetracyclines (10/12/15) cephalexin (From KEFLEX) (10/12/15) Home Medications Active Scripts CLINDAMYCIN HCL (Clindamycin 150MG CAP) 150 MG PO TID #18 CAPSULE Prov: 08/27/17 Reported Medications Warfarin Sodium 2 MG PO DAILY #14 Furosemide 80 MG PO DAILY #60 GUAIFENESIN/DEXTROMETHORPHAN (Tussin Dm Liquid) 10 ML PO Q6HP PRN COUGH ATORVASTATIN CALCIUM (ATORVASTATIN 10MG) 10 MG PO QHS BISOPROLOL FUMARATE (Bisoprolol 5MG) 2.5 MG PO DAILY DONEPEZIL HCL (Donepezil 10MG Tablet) 5 MG PO QHS IPRATROPIUM/ALBUTEROL SULFATE (Iprat-Albut 0.5-3(2.5) MG/3 Ml) 3 ML IH TID ALBUTEROL-IPRATROPIUM (Iprat-Albut 0.5-3(2.5) MG/3 Ml) 3 ML IH TIDP PRN BREATHING Melatonin 5 MG PO QHS Insulin Aspart, Recombinant (Novolog Flexpen) 2 UNITS SC ACHS Pantoprazole Sodium (Pantoprazole 40MG) 40 MG PO DAILY Hydroxyzine Pamoate (Vistaril) 25 MG PO Q6HP PRN ANXIETY LOPERAMIDE HCL (Loperamide) 2 MG PO Q6HP PRN DIARRHEA Discontinued Reported Medications WARFARIN SOD (Coumadin) 2 MG PO DAILY Furosemide (Lasix 80MG) 80 MG PO BIDL Losartan Potassium (Losartan 50MG) 25 MG PO DAILY COLLAGENASE CLOSTRIDIUM HIST. (Santyl) 15 GM EX DAILY History Medical History General CAD? Yes Angina: Yes AR: Yes Hypertension? Yes Hyperlipidemia? Yes CHF? Yes DVT? No PE? No COPD? Yes Asthma? No Anemia? No GERD? Yes Gastric ulcers? Yes GI Bleed? No Hernia? No Thyroid Problems? No Hypothyroidism? No CVA? No Seizures? No Diabetes? 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 Yes Renal Insuffiency? No End Stage Renal Disease? No UTI? Yes Stones? No BPH? No GB Disease: Yes Nephritic Syndrome? No Asplenia? No Hepatitis? No Sickle Cell Disease? No Arthritis? Yes Migraines? No Cataracts? Yes Glaucoma? Yes MRSA? No HIV? No TB? No Anxiety? Yes Depression? Yes Cancer? Yes Site: SKIN Immunization Hx DT/Tetanus Unknown Flu 2016-SN Pneumonia Received In Past Surgical Hx Previous Surgery?Y Coronary Artery Bypass HYSTERECTOMY Cholecystectomy APPY D & C LASER ON ABIOLA EYES LEFT HAND SURGERY 01/17 RIGHT HAND SURGERY 2003 CATARACT REMOVEAL ABIOLA EYE L SHOULDER PACEMAKER INSERTION Family History Family Hx Diabetes Yes CAD No Hypertension Yes Hyperlipidemia Yes Cancer Yes TB No Social History Smoking Hx Smoker: Never Smoker Tobacco: No Packs/day N/A Alcohol Alcohol: No Drugs none Review of Systems All Other Systems Reviewed and Negative Constitutional see HPI, denies fever, weakness Eyes denies drainage ENT denies: ear discharge, epistaxis, throat pain. Respiratory denies cough, denies shortness of breath, denies wheezing Cardiovascular denies chest pain, denies syncope Gastrointestinal denies abdominal pain, denies diarrhea, denies vomiting Genitourinary denies: dysuria, frequency, hesitancy, hematuria. Musculoskeletal denies back pain, denies joint pain, denies joint swelling, denies neck pain Skin denies rash Psychiatric/Neurological see HPI, denies headache, denies seizure, other Physical Exam Vital Signs Vital Signs Date Time Temp Pulse Resp B/P Pulse O2 O2 Flow FiO2 Ox Delivery Rate 08/294 97.8 69 18 115/66 100 2 - WBC >12,000 or <4,000 or 10% bands? 2 or more SIRS Criteria Met? B/P:106/64 MAP:82 Creatinine >2.0? UA output<0.5ml/kg/hr for 2 hrs? Platelet count >100,000? Lactate >2.0mmol/1? INR >1.2 or PTT > than 60 sec? Evidence of Organ Dysfunction? Provider documented clinical suspician of infection? N Sepsis Criteria Count: 0 Sepsis Risk: Low Sepsis Risk General Appearance no apparent distress Eye Exam - bilateral eye PERRL, bilateral eye EOMI Ear, Nose, Throat normal ENT inspection Neck non-tender, limited range of motion Respiratory Status No: respiratory distress. Lung Sounds bilateral: decreased breath sounds. Cardiovascular regular rate/rhythm, systolic murmur Peripheral Pulses Pulses normal Yes Gastrointestinal soft, no organomegaly, no pulsatile mass, no guarding, no rebound Extremities no calf tenderness, pedal edema Strength 3 Lower Ext (L), 3 Lower Ext (R), 4 Upper Ext (L), 4 Upper Ext (R) Rectal deferred Neurologic alert, irradiated fuel handler II-XII nml as tested, no focal changes Glascow Coma Scale Glascow Coma Scale Response Value EYE response: 4 Spontaneously 4 MOTOR response: 6 OBEYS 6 VERBAL response: 5 Oriented & Converses 5 Total 15 Reflexes Reflexes normal No Mental status sommulent Skin no rash cons.w/shingles Medical Decision Making LABS/Meds/Orders Pt receiving controlled substance in ED? No Results/Orders Laboratory Tests 08/29/175: Urine Color YELLOW, Urine Appearance CLEAR, Urine pH 5.5, Ur Specific [place] 1.025, Urine Protein NEGATIVE, Urine Ketones NEGATIVE, Urine Blood 3+ H, Urine Nitrate NEGATIVE, Urine Bilirubin NEGATIVE, Urine Urobilinogen 0.2, Ur Leukocyte Esterase 1+ H, Urine RBC NONE, Urine WBC 10-20, Ur Squamous Epith Cells 3-5, Urine Bacteria TRACE, Urine Yeast 4+, Urine Glucose NEGATIVE 08/29/170: Lactic Acid 2.4 H 08/29/17 2230: Sodium 132 L, Potassium 4.9, Chloride 97 L, Carbon Dioxide 22, BUN 79 H, Creatinine 3.7 H, Estimated Creat Clear 20 L, Estimated GFR (MDRD) 12 *L, Glucose 173 H, Calcium 8.4 L, Total Bilirubin 2.4 H, AST 44 H, ALT 21, Alkaline Phosphatase 91, Creatine Kinase 31, CK-MB (CK-2) Rel Index 2.6, CK and CKMB Interp 0.8, Troponin I 0.06, Total Protein 8.0, Albumin 2.5 L, Globulin 5.5 H, Albumin/Globulin Ratio 0.5 L, PT 25.6 H, INR 2.35 H, WBC 6.0, RBC 4.26, Hgb 11.6 L, Hct 35.3 L, MCV 83.0, RDW 22.4 H, Plt Count 137 L, MPV 9.8 , Gran % 77.0, Gran # 4.6, Lymphocytes % 9.1 L, Monocytes % 13.0 H, Eosinophils % 0.7, Basophils % 0.2, Lymphocytes # 0.5 L, Monocytes # 0.8, Eosinophils # 0.0, Basophils # 0.0, PUBS MCHC 32.8, MCH 27.2 Current Medication Orders Sig/Benito Start time Last Medication Dose Route Stop Time Status Admin Sodium Chloride 50 ML .STK-MED ONE 08/29 2351 DC IV Ceftriaxone Sodium 0 .STK-MED ONE 08/29 2350 DCr IV Ceftriaxone Sodium 1 GM ONCE ONE 08/29 2345 r Sodium Chloride 50 ML IV 08/30 0014 Sodium Chloride 10 ML PRN PRN 08/29 2215 AC IV 08/30 2202 Orders Procedure Date/time Status LACTIC ACID FOLLOW UP 08/29 2312 Active CULTURE, URINE 08/29 2245 Active PROTHROMBIN TIME 08/29 2213 Complete ELECTROCARDIOGRAM REQUEST 08/29 2203 Active IV SALINE LOCK 08/29 2203 Active URINARY CATHETER INSERT 08/29 2203 Active CULTURE, BLOOD 08/29 2203 Active URINALYSIS/COMPLETE 08/29 2203 Complete LACTIC ACID 08/29 2203 Complete CBC WITH AUTO DIFF 08/29 2203 Complete CARDIAC ENZYMES 08/29 2203 Complete CHEM 12 PROFILE 08/29 2203 Complete CM/EKG CM/field court 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 Rhythm Paced Rhythm Departure Departure Time of Disposition 2353 Disposition DC Home or Self Care(routine) Clinical Impression Primary Impression: UTI (urinary tract infection) Qualifiers: Urinary tract infection type: acute cystitis Hematuria presence: without hematuria Qualified Code: N30.00 - Acute cystitis without hematuria Secondary Impressions: Renal insufficiency Condition STABLE Referrals Maciej Sosa MD (Family) discussed with dr sosa Patient Instructions DI for Urinary Tract Infection (UTI) Additional Instructions resume prev meds Discharge Counseling Counseled pt/family regarding diagnosis, test results, medications/RX, follow up needs ED Critical Care Critical Care No at 0000
[2017-08-30 02:35] VITALS: BP 116/69
== END 2017-08-30 02:25 | disposition home or self-care (01) ==
LOC: ER 21:57
PROVIDERS: Emergency Medicine
DX: N30.00 Acute cystitis without hematuria (principal); N28.9 Disorder of kidney and ureter, unspecified; E11.65 Type 2 diabetes mellitus with hyperglycemia; Z79.4 Long term (current) use of insulin; Z79.01 Long term (current) use of anticoagulants; I25.10 Atherosclerotic heart disease of native coronary artery without angina pectoris; I10 Essential (primary) hypertension; K21.9 Gastro-esophageal reflux disease without esophagitis

== ENCOUNTER → 2017-09-18 | Outpatient (CLI) | payer MEDICARE, OTHER ==
[~2017-09-18] MED LIST changes: +FUROSEMIDE80 M1 PO; +WARFARIN SOD2 MG PO
== END ==
LOC: LAB 09:06
DX: Z79.01 Long term (current) use of anticoagulants (principal); Z51.81 Encounter for therapeutic drug level monitoring

== ENCOUNTER → 2017-09-25 | Outpatient (CLI) | payer MEDICARE, OTHER | LOC: LAB 10:35 | DX: Z79.01 Long term (current) use of anticoagulants (principal); Z51.81 Encounter for therapeutic drug level monitoring ==